=== PATIENT | female | born 1995 | race Caucasian/White ===

== ENCOUNTER 2019-09-22 16:46 | Outpatient (REF) | payer OTHER, SELFPAY ==
--- NOTE | 2019-09-22 16:00 | PAPFT_PTH ---
PATIENT: Christi Anderson LOC: NCN #:[id number] AGE/SX: 23/F ROOM: RE09/22/[address]: Bernadine Arzola : 1995 BED: DIS: 09/22/2019 SPEC #: [id number] RECD: 09/22/19 18:32 STATUS: CORNELIO REQ #: [id number] OVIDIO: 09/22/19 16:[address]: Bernadine Arzola DEPT: [facility] Cytology RECD BY: Minnie Cummings ENTERED: 09/22/19 18:32 SP TYPE: PAPFT OTHR DR: Apple Tracy MD Tissues: 1 - CX/ENDOCX FOR PAP SMEARS Procedures: PAP THIN PREP/UVM Screening Comments: [id number] (CHLAMYDIA/GC)
[2019-09-23 14:14] LABS: Chlamydia Result Negative (Negative)
[2019-09-23 14:33] LABS: GC Result Negative (Negative)
== END 2019-09-22 17:06 ==
LOC: NCHCN 16:46
PROVIDERS: PCP Pediatrics; Visit Provider Family Medicine
DX: Z00.00 Encounter for general adult medical examination without abnormal findings (principal); Z12.4 Encounter for screening for malignant neoplasm of cervix
CPT/HCPCS: 87491; 87591; 88142

== ENCOUNTER 2019-12-08 11:59 | Outpatient (CLI) | payer BC, SELFPAY ==
[2019-12-08 13:08] LABS: HCT 43.3 % (36.0-46.0); HGB 14.4 g/dL (12.0-15.5); Mean Corp. HGB Concentration 33.3 g/dL (32.0-36.0); Mean Corpuscular Hemoglobin 30.1 pg (27.0-33.0); Mean Corpuscular Volume 90.6 fL (80-95); Platelet Count 304 x1000/uL (130-400); RBC 4.78 m/cumm (4.00-5.20); RBC Distribution Width 12.7 % (11.7-14.6); White Blood Cell Count 6.48 k/cumm (4.4-10.8)
[2019-12-08 13:47] LABS: HCG Qual (Serum) Negative
[2019-12-08 14:33] LABS: ALT 28 U/L (14-59); AST 24 U/L (15-37); Alkaline Phosphatase 40 U/L (46-116); Anion Gap 10.7 mmol/L (3-11); BUN 6 mg/dL (7-18); Bilirubin, Total 0.4 mg/dL (0.2-1.0); CO2 26.3 mmol/L (21.0-32.0); CREATININE 0.85 mg/dL (0.55-1.02); Calcium 9.4 mg/dL (8.5-10.1); Chloride 105 mmol/L (98-107); Glucose 83 mg/dL (74-106); Lipase 100 U/L (73-393); Potassium 4.2 mmol/L (3.5-5.1); Sodium 142 mmol/L (136-145); TSH (W/Ref FT4) 1.59 uIU/mL (0.36-3.74); Total Protein 7.5 g/dL (6.4-8.2)
[2019-12-10 14:33] LABS: IgA 314 mg/dL (85-499); Tissue Transglutaminase IgA <1.2 U/mL (<4.0)
== END 2019-12-08 12:19 ==
PROVIDERS: PCP Family Medicine; Visit Provider Family Medicine
DX: R51 Headache (principal); R11.0 Nausea
CPT/HCPCS: 36415; 80053; 82784; 83516; 83690; 85027; 84443; 84703

== ENCOUNTER 2020-04-19 16:33 | Outpatient (REF) | payer BC, SELFPAY ==
[2020-04-20 23:52] LABS: COVID-19 RT-PCR UVMMC Result Negative (Negative)
== END 2020-04-19 16:53 ==
LOC: NCHCN 16:33
PROVIDERS: PCP Family Medicine; Visit Provider Nurse Practitioner Family
DX: J06.9 Acute upper respiratory infection, unspecified (principal)
CPT/HCPCS: U0003

== ENCOUNTER 2020-06-09 02:09 | Outpatient (CLI) | payer BC, SELFPAY ==
--- NOTE | 2020-06-09 | DI.MRI_ITS ---
EXAM: MR BRAIN WO CLINICAL HISTORY: HEADACHES,R51,NAUSEA, FEELING OFF BALANCE TECHNIQUE: Multiplanar multisequence MRI of the brain was performed. COMPARISON: No exams were available for comparison FINDINGS: VENTRICLES AND EXTRA AXIAL SPACES: Normal in size and morphology for the patient's age. MIDLINE SHIFT: None. CEREBRAL PARENCHYMA: No focus of restricted diffusion to suggest acute infarct. No space-occupying le jemma identified. HEMORRHAGE: None. BRAINSTEM/CEREBELLUM: Normal. CALVARIUM: Normal. VISUALIZED PARANASAL SINUSES/MASTOIDS:Clear. ONEIDA OF ZUNIGA: Normal flow void. PITUITARY GLAND: Unremarkable. OTHER FINDINGS: None. IMPRESSION: Unremarkable MRI of the brain. DATA REPOSITORY:
== END 2020-06-09 02:29 ==
PROVIDERS: PCP Family Medicine; Visit Provider Family Medicine
DX: R51 Headache (principal); R11.0 Nausea
CPT/HCPCS: 70551

== ENCOUNTER 2022-11-16 11:24 | Outpatient (REF) | payer BC, SELFPAY ==
--- NOTE | 2022-11-16 10:20 | PAPFT_PTH ---
PATIENT: Christi Anderson LOC: [facility]#:[id number] AGE/SX: 27/F ROOM: RE11/16/[address]: Bernadine Arzola : 1995 BED: DIS: 11/16/2022 SPEC #: [id number] RECD: 11/16/22 18:19 STATUS: CORNELIO REQ #: [id number] OVIDIO: 11/16/22 10:[address]: Bernadine Arzloa DEPT: [facility] [place] Cytology RECD BY: Minnie Cummings Tissues: 1 - CX/ENDOCX FOR PAP SMEARS Procedures: PAP THIN PREP/UVM Screening HPV DNA PROBE Comments: [id number] (CHLAMYDIA/GC)
[2022-11-17 12:49] LABS: Chlamydia Result Negative (Negative); GC Result Negative (Negative)
== END 2022-11-16 11:25 | disposition home or self-care (01) ==
LOC: NCHCN 11:24
PROVIDERS: PCP Family Medicine; Visit Provider Family Medicine
DX: Z11.3 Encounter for screening for infections with a predominantly sexual mode of transmission (principal); Z12.4 Encounter for screening for malignant neoplasm of cervix; Z01.419 Encounter for gynecological examination (general) (routine) without abnormal findings; Z11.51 Encounter for screening for human papillomavirus (HPV)
CPT/HCPCS: 87491; 87591; 88142; 87624

== ENCOUNTER 2022-11-28 17:22 | Outpatient (REF) | payer BC, SELFPAY ==
[2022-11-28 20:01] LABS: ALT 27 U/L (14-59); AST 28 U/L (15-37); Alkaline Phosphatase 55 U/L (46-116); Bilirubin, Direct 0.1 mg/dL (0.0-0.2); Bilirubin, Total 0.4 mg/dL (0.2-1.0); Lipase 47 U/L (16-77)
[2022-11-30 10:29] LABS: HIV-1/2 Ag & Ab Screen Negative (Negative)
[2022-11-30 10:34] LABS: Hepatitis C Ab w Rflx HCV PCR Negative (Negative)
== END 2022-11-28 17:23 | disposition home or self-care (01) ==
LOC: NCHCN 17:22
PROVIDERS: PCP Family Medicine; Visit Provider Family Medicine
DX: Z00.00 Encounter for general adult medical examination without abnormal findings (principal); R11.0 Nausea; Z11.4 Encounter for screening for human immunodeficiency virus [HIV]; Z11.59 Encounter for screening for other viral diseases
CPT/HCPCS: 80076; 83690; 86803; 87389

== ENCOUNTER 2024-10-13 11:32 | Outpatient (CLI) | payer BC, SELFPAY ==
[2024-10-13 11:19] LABS: Abs Immature Grans 0.02 10^3/uL (0.0-0.06); Absolute Basophil Count 0.05 10^3/uL (0.0-0.2); Absolute Eosinophil Count 0.15 10^3/uL (0.0-0.7); Absolute Lymphocyte Count 2.13 10^3/uL (1.2-3.4); Absolute Monocyte Count 0.63 10^3/uL (0.1-0.8); Absolute Neutrophil Count 3.92 10^3/uL (1.2-6.7); Basophils % 0.7 %; Eosinophils % 2.2 %; HCT 41.7 % (36.0-46.0); HGB 14.1 g/dL (11.2-15.7); Immature Grans % 0.3 %; Lymphocytes % 30.9 %; MCH 29.8 pg (27.0-33.0); MCHC 33.8 % (32.0-36.0); MCV 88 fL (80-95); MPV 9.2 fL (8.0-11.0); Monocytes % 9.1 %; Neutrophils % 56.8 %; Platelet Count 337 10^3/uL (130-400); RBC 4.73 10^6/uL (3.93-5.22); RDW-SD 39.2 fL
[2024-10-13 11:43] LABS: ALT 24 U/L (14-59); AST 22 U/L (15-37); Albumin 3.7 g/dL (3.4-5.0); Alkaline Phosphatase 63 U/L (46-116); Anion Gap 10.5 mmol/L (3-11); BUN 6 mg/dL (7-18); Bilirubin, Total 0.24 mg/dL (0.2-1.0); CO2 26.5 mmol/L (21.0-32.0); Chloride 105 mmol/L (98-107); Estimated GFR 77.72 (mL/min/1.73m2); Glucose 81 mg/dL (74-106); Lipase 52 U/L (<78); Potassium 3.9 mmol/L (3.5-5.1); Sodium 142 mmol/L (136-145); Total Protein 8.3 g/dL (6.4-8.2)
[2024-10-13 11:47] LABS: Calcium 9.5 mg/dL (8.5-10.1)
== END 2024-10-13 11:33 | disposition home or self-care (01) ==
LOC: LBO 11:33
PROVIDERS: PCP Family Medicine; Visit Provider Nurse Practitioner Family
DX: R10.11 Right upper quadrant pain (principal)
CPT/HCPCS: 36415; 80053; 83690; 85025

== ENCOUNTER 2024-10-23 07:59 | Inpatient (IN) | payer BC, SELFPAY ==
[2024-10-23] VITALS (9 sets, daily range): BP systolic 111–143; BP diastolic 63–100; PULSE 82–117; RESP 14–20; TEMP 35.8–36.9; O2SAT 96–100
--- NOTE | 2024-10-23 | DI.MRI_ITS ---
Exam(s) MR ABDOMEN WO EXAM: MR ABDOMEN WO CLINICAL HISTORY: CBD stone TECHNIQUE: Multiplanar multisequence MRI of the Abdomen was performed. MRCP sequences also performed. COMPARISON: US US ABDOMEN LIMITED from 10/23/2024 FINDINGS: Liver: Unremarkable. Gallbladder: Multiple stones. No abnormal gallbladder distention or wall thickening. Bile Ducts: The common bile duct is dilated to 10 millimeters. There are 5 stones within the common bile duct, measuring 6 to 9 millimeters in size. There is mild intrahepatic biliary dilatation. Pancreas: Unremarkable. Adrenals: Unremarkable. Kidneys: Unremarkable. Spleen: Unremarkable. Aorta: Unremarkable. Soft Tissues: Unremarkable. Bone: Unremarkable. Lymph Nodes: Unremarkable. Mesentery: No ascites. No focal fluid collection. Bowel: No abnormal dilatation or wall thickening. IMPRESSION: Five stones are noted within the common bile duct. There is dilatation of the common bile duct to 10 millimeters. Additional stones are noted in the gallbladder. No significant wall thickening or abn ormal gallbladder distention. . DATA REPOSITORY:
--- NOTE | 2024-10-23 08:00 | RT.EKG_ITS ---
APPROVED REPORT Exam: Resting ECG Reason for Exam: chest pain Patient Location: E HR:110 bpm ECG Measurements Heart Rate 110 AXIS OR 134 P 87 QRSd 77 QRS 94 QT 332 T -1 QTc 448 Conclusion Sinus tachycardia 110 normal axis no stemi
--- NOTE | 2024-10-23 08:08 | ED.GENADUL_ITS ---
Discharge Plan Disposition Patient Disposition: Admit to [facility] Discharge Details Clinical Impression: Gallstones Admit Date/Time: 10/23/24 10:52 Admit Provider: Maki Hardy Attending Provider: Maki Hardy Primary Care Provider: Bernadine Arzola ED Provider: Lupe Garcia HPI General Date/Time Provider Initiated Documentation: 10/23/24 08:07 . HPI Narrative: Christi is a 28 year old female who presents to the emergency department today for evaluation of stabbing right upper quadrant pain that radiates around to the back accompanied by nausea and vomiting. She reports that she had an episode of pain similar to this that lasted approximately 2 weeks but then gradually went away. Her PCP ordered an ultrasound to be performed next week. The pain returned 2 days ago, is worse than before. She did vomit x 1 today. Denies associated fever/chills, congestion, sore throat, cough, chest pains, difficulty breathing, blood in vomit, change in urine output or diarrhea, rashes. She reports she has an aching pain all across her mid back that is associated with this. Does report darker yellow urine than usual, but no other urinary complaints. Denies history of calf swelling/tenderness, surgery or immobility, long distance travel, cancer or blood clot history. Past medical history is significant for GERD, carpal tunnel, chronic headaches. No significant family history of hyperlipidemia, coronary artery disease, or diabetes. Physical exam remarkable for mild tenderness to palpation to right upper quadrant. Patient is alert and oriented, no acute distress. Abdomen is soft, nondistended, no rigidity or guarding, normoactive bowel sounds. No overlying rashes or ecchymosis. No CVA tenderness. Easy work of breathing, lung sounds clear bilaterally. Normal heart sounds, tachycardia noted.. D/dx includes but is not limited to: Choledocholithiasis, cholecystitis, pancreatitis, GERD, peptic ulcer disease I independently interpreted the following tests: EKG reassuring, sinus tachycardia, rate 110, no changes consistent with acute ischemia. Normal intervals. CBC reassuring. LFTs very elevated with total bili 6. 3 6, AST 429, ALT 692, and alk phos 126. Lipase elevated at 172. Urine shows large bili and moderate blood, greater than 160 mg/dL ketones. hCG negative While in the emergency department, Christi received Zofran for nausea, experienced good relief of symptoms and heart rate decreased to 82; she is resting comfortably. Patient does have cholelithiasis on CT scan. Discussed case with Dr. Hardy, general surgeon. As patient has significantly elevated LFTs, she meets criteria for admission; would benefit from MRCP and ERCP/management. She is agreeable with plan of care Related Data Home Medications ?Medication ?Instructions ?Recorded ?Confirmed medroxyprogesterone 150 mg/mL 150 mg IM [id number] 12/01/22 10/23/24 intramuscular syringe pantoprazole 40 mg tablet,delayed 40 mg PO DAILY 12/01/22 10/23/24 release ondansetron 4 mg disintegrating 4 mg PO Q8H PRN #10 tabs 10/23/24 tablet Previous Rx's ?Medication ?Instructions ?Recorded ondansetron 4 mg disintegrating 4 mg PO Q8H PRN #10 tabs 10/23/24 tablet Allergies Allergy/AdvReac Type Severity Reaction Status Date / Time No Known Allergies Allergy Verified 10/23/24 08:11 Review of Systems Narrative: See HPI Exam Const General: cooperative, healthy appearing, comfortable, no acute distress, well developed and well groomed Nutritional Appearance: average body habitus and well nourished Orientation: alert and oriented x3 HENMT Mouth: oral mucosae normal, oropharynx normal and moist mucous membranes Resp Effort & Inspection: normal respiratory effort and able to speak in complete sentences Auscultation: clear to auscultation bilaterally Cardio Rate: tachycardic Rhythm: regular rhythm GI Inspection: normal to inspection, no abdominal wall ecchymosis, non-distended, no visible herniation and no visible pulsation Palpation: soft, not firm, not rigid and tender in the RUQ Auscultation: normal bowel sounds Medical Decision Making Imaging Data Radiologic Study: Radiologist's impression: Accession No. : [id number] Creator : MACARIO PARKER Dictator : MACARIO PARKER Automotive Sales Professional : Paper Grader : MACARIO PARKER Approver2 : Report Date : 10/23/2024 10:15:37 Exam(s) US ABDOMEN LIMITED EXAM: US ABDOMEN LIMITED CLINICAL HISTORY: RUQ pain radiating to back, n/v TECHNIQUE: Ultrasound abdomen performed using standard protocol. COMPARISON: No exams were available for comparison FINDINGS: LIVER: Normal size. Mildly increasedechogenicity, consistent with mild hepatic steatosis. No focal liver lesions are seen. GALLBLADDER: Several small stones are noted. No evidence of wall thickening. No pericholecystic fluid identified. BARAHONA'S SIGN: Negative. BILIARY SYSTEM: No intrahepatic or extrahepatic biliary ductal dilation. RIGHT KIDNEY: Normal size. No evidence of renal calculi. No evidence of hydro nephrosis. No suspicious renal mass. No cyst identified. PANCREAS: Normal where visualized. ABDOMINAL AORTA AND IVC: Visualized portions normal caliber. ASCITES: None seen. IMPRESSION: Cholelithiasis. No evidence of acute cholecystitis or biliary dilatation. DATA REPOSITORY: Quality:[facility] Health Related Social Needs: Health related social needs housing instability, house d, with risk of homelessness(Z59.811) [facility] All Active Problems (Updated 10/23/24 @ 10:42 by Lupe Ayala) Gallstones (Acute) Abnormal auditory perception of both ears (Acute) Medical History Carpal tunnel syndrome Chronic headaches Chronic nausea Contraceptive management Encounter for screening for malignant neoplasm of cervix GERD (gastroesophageal reflux disease) Obesity Otalgia, bilateral Preventative health care TMJ tenderness, bilateral Social History Smoking/Tobacco Use Status: Never Smoking risk assessment performed?: Yes Alcohol Intake: never Drug use: Never Substance use type: does not use Housing: house Do you feel safe at home: Yes Do you feel safe in your relationship?: Yes
[2024-10-23 08:40] LABS: Abs Immature Grans 0.03 10^3/uL (0.0-0.06); Absolute Basophil Count 0.04 10^3/uL (0.0-0.2); Absolute Eosinophil Count 0.03 10^3/uL (0.0-0.7); Absolute Lymphocyte Count 0.83 10^3/uL (1.2-3.4); Absolute Monocyte Count 0.73 10^3/uL (0.1-0.8); Absolute Neutrophil Count 6.65 10^3/uL (1.2-6.7); Basophils % 0.5 %; Eosinophils % 0.4 %; HCT 44.4 % (36.0-46.0); HGB 15.1 g/dL (11.2-15.7); Immature Grans % 0.4 %; MCH 30.3 pg (27.0-33.0); MCV 89 fL (80-95); MPV 9.1 fL (8.0-11.0); Monocytes % 8.8 %; Neutrophils % 79.9 %; Platelet Count 315 10^3/uL (130-400); RBC 4.99 10^6/uL (3.93-5.22); RDW-SD 39.1 fL; WBC 8.31 10^3/uL (4.4-10.8)
--- NOTE | 2024-10-23 08:45 | DI.US_ITS ---
Exam(s) US ABDOMEN LIMITED EXAM: US ABDOMEN LIMITED CLINICAL HISTORY: RUQ pain radiating to back, n/v TECHNIQUE: Ultrasound abdomen performed using standard protocol. COMPARISON: No exams were available for comparison FINDINGS: LIVER: Normal size. Mildly increasedechogenicity, consistent with mild hepatic steatosis. No focal liver lesions are seen. GALLBLADDER: Several small stones are noted. No evidence of wall thickening. No pericholecystic flui d identified. BARAHONA'S SIGN: Negative. BILIARY SYSTEM: No intrahepatic or extrahepatic biliary ductal dilation. RIGHT KIDNEY: Normal size. No evidence of renal calculi. No evidence of hydronephrosis. No suspicious renal mass. No cyst identified. PANCREAS: Normal where visualized. ABDOMINAL AORTA AND IVC: Visualized portions normal caliber. ASCITES: None seen. IMPRESSION: Cholelithiasis. No evidence of acute cholecystitis or biliary dilatation. DATA REPOSITORY:
[2024-10-23] MEDS: Ondansetron 4 MG/2 ML VIAL IVP (08:49)
[2024-10-23 09:32] LABS: Bilirubin Large (Negative); Blood Moderate (Negative); Clarity Clear (Clear); Glucose Negative (Negative); Ketones >=160 mg/dL (Negative); Leukocyte Esterase Trace (Negative); Nitrite Negative (Negative); Urobilinogen 0.2 mg/dL (Up to 0.2)
[2024-10-23 09:46] LABS: ALT 692 U/L (14-59); AST 429 U/L (15-37); Albumin 3.9 g/dL (3.4-5.0); Alkaline Phosphatase 126 U/L (46-116); Anion Gap 9.8 mmol/L (3-11); BUN 4 mg/dL (7-18); Bilirubin, Total 6.36 mg/dL (0.2-1.0); CO2 28.2 mmol/L (21.0-32.0); CREATININE 0.8 mg/dL (0.55-1.02); Chloride 103 mmol/L (98-107); Estimated GFR 101.59 (mL/min/1.73m2); Glucose 91 mg/dL (74-106); Lipase 172 U/L (<78); Magnesium 2.1 mg/dL (1.8-2.4); Potassium 4.6 mmol/L (3.5-5.1); Sodium 141 mmol/L (136-145); Total Protein 8.3 g/dL (6.4-8.2)
[2024-10-23 10:08] LABS: Epithelial Cells Few HPF (Negative)
[2024-10-23 10:09] LABS: Bacteria Rare HPF (Negative); C & S Indicated? No; Casts 0-2 Fine Granular LPF (Negative); Crystals Negative HPF (Negative); Mucus Negative (Negative); Other Cells Few Renal (Negative)
--- NOTE | 2024-10-23 11:31 | W.PM.HP.N ---
Date of service: 10/23/24 Time of Service: 20:16 Assessment and Plan Assessment and plan (1) Abnormal auditory perception of both ears: Status: Acute (2) Gallstones: Status: Acute Assessment and plan: ASSESSMENT AND PLAN 1. Cholelithiasis. They present with 5 gallstones lodged in their bile duct, causing significant pain and jaundice. The gallstones are located at the junction where the pancreas meets the bile ducts. A comprehensive discussion was held regarding the necessity of gallbladder removal in the future. The procedure for stone removal was explained in detail, including the potential need for a stent placement post-procedure. They were informed about the possibility of experiencing a sore throat, abdominal tenderness, and nausea post-procedure. They were advised to inform the nurse if they experience nausea so that appropriate medication can be administered. They were also advised to take a week off from work post-surgery for rest and recovery. An ERCP procedure is scheduled for tomorrow at [facility] to remove the stones. They will be transported via ambulance to [facility] for the procedure and will be kept overnight for observation. If their condition remains stable and they are able to eat, they will be discharged the following day. A cholecystectomy is planned for a week after the ERCP. The alternatives to surgery, risks, complications, and the possible need to convert to open cholecystectomy were discussed. Also bleeding, infection, pneumonia, blood clots, complications of anesthesia, damage to bowel, bladder, blood vessels, or bile ducts, liver, need for blood transfusions. Also: chronic pain, chronic diarrhea/post-ivan syndrome, reoccurrence of signs and symptoms, port site hernias, adhesions This document was created w/ assistance of [email or web address] leonardo. 30 mins spent in direct pt care and 10 minutes in non face to face time (3) GERD (gastroesophageal reflux disease): (4) Choledocholithiasis with obstruction: Status: Acute (5) Cholelithiasis with choledocholithiasis: Status: Acute (6) Choledocholithiasis with chronic cholecystitis: Status: Acute History of Present Illness Narrative: HISTORY OF PRESENT ILLNESS The patient presents for evaluation of gallstones. They report a significant improvement in their condition since their last visit to the emergency room. They experienced severe back pain, which they describe as feeling like being kicked repeatedly. This morning, they also had nausea and vomiting. A few weeks prior, they had a similar episode of sharp back pain, prompting a doctor's visit. Blood tests were conducted at that time, and an ultrasound was scheduled for the following Sunday. They have no history of childbirth or hormonal control use. They are uncertain about any family history of gallbladder issues. Their cholesterol levels have not been checked. They have no history of surgeries, heart problems, asthma, diabetes, or seizures. They recall undergoing anesthesia as a child due to stomach issues, but no abnormalities were found. They have had their wisdom teeth removed without complications. They are not on any medications. They do not smoke. Review of Systems All systems reviewed & are unremarkable except as noted in HPI and below PFSH All Active Problems Choledocholithiasis with chronic cholecystitis (Acute) Cholelithiasis with choledocholithiasis (Acute) Choledocholithiasis with obstruction (Acute) Gallstones (Acute) Abnormal auditory perception of both ears (Acute) Medical History Encounter for screening for malignant neoplasm of cervix Preventative health care Contraceptive management Carpal tunnel syndrome Chronic headaches GERD (gastroesophageal reflux disease) TMJ tenderness, bilateral Otalgia, bilateral Chronic nausea Obesity Social History Smoking/Tobacco Use Status: Never Smoking risk assessment performed?: Yes Alcohol Intake: never Drug use: Never Substance use type: does not use Housing: house Do you feel safe at home: Yes Do you feel safe in your relationship?: Yes Meds Allergies and Home Medications Allergies Allergy/AdvReac Type Severity Reaction Status Date / Time No Known Allergies Allergy Verified 10/23/24 08:11 Home Medications ?Medication ?Instructions ?Recorded ?Confirmed ?Type medroxyprogesterone 150 mg/mL 150 mg IM [id number] 12/01/22 10/23/24 History intramuscular syringe pantoprazole 40 mg tablet,delayed 40 mg PO DAILY 12/01/22 10/23/24 History release ondansetron 4 mg disintegrating 4 mg PO Q8H PRN #10 tabs 10/23/24 Rx tablet Exam Narrative Exam Narrative: PHYSICAL EXAM GENERAL APPEARANCE: Alert, healthy appearance, oriented, x 3,? in no acute distress HYDRATION: Well hydrated HEAD, EYES, EARS, NECK, THROAT: Head is normocephalic, pupils equal, round, reactive to light and accommodation, ocular movement intact, sclera clear and no jaundice. ?Dentition intact. LUNGS: normal respiration/normal chest excursion. ?Clear to auscultation bilaterally. ?No wheeze. ?HEART: Regular rate and rhythm. no murmurs EXTREMITY: No edema or cyanosis.? no leg pain, redness, swelling.? ABDOMEN: pain is in epigastric region- mild now. ? Normal bowel sounds.? No hernias.? Results Labs 10/24/24 06:35 10/23/24 09:24 Labs: Laboratory Results - last 24 hr 10/23/24 10/23/24 10/23/24 08:33 08:49 09:24 WBC 8.31 RBC 4.99 Hgb 15.1 Hct 44.4 MCV 89 MCH 30.3 MCHC 34.0 RDW 12.0 Plt Count 315 MPV 9.1 Immature Gran % 0.4 Neutrophils % 79.9 Lymphocytes % 10.0 Monocytes % 8.8 Eosinophils % 0.4 Basophils % 0.5 Nucleated RBC % 0.0 Absolute Neutrophils 6.65 Absolute Lymphocytes 0.83 L Absolute Monocytes 0.73 Absolute Eosinophils 0.03 Absolute Basophils 0.04 Sodium Cancelled 141 Potassium Cancelled 4.6 Chloride Cancelled 103 Carbon Dioxide Cancelled 28.2 Anion Gap Cancelled 9.8 BUN Cancelled 4 L Creatinine Cancelled 0.8 Est GFR (CKD-EPI 2020) Cancelled 101.59 Glucose Cancelled 91 Calcium Cancelled 10.0 Magnesium Cancelled 2.1 Total Bilirubin Cancelled 6.36 H AST Cancelled 429 H ALT Cancelled 692 H Alkaline Phosphatase Cancelled 126 H Total Protein Cancelled 8.3 H Albumin Cancelled 3.9 Lipase Cancelled 172 H Urine Color Yellow Urine Clarity Clear Urine pH 6.0 Ur Specific Minto 1.010 Urine Protein Trace Urine Ketones >=160 H Urine Blood Moderate H Urine Nitrite Negative Urine Bilirubin Large H Urine Urobilinogen 0.2 Ur Leukocyte Esterase Trace H Urine RBC 5-10 H Urine WBC 5-10 Ur Epithelial Cells Few Urine Crystals Negative Urine Bacteria Rare Urine Casts 0-2 Fine Granular Urine Mucus Negative Urine Other Few Renal Ur Culture Indicated? No Urine Glucose Negative Last Vital Signs Temp 36.8 C 10/23/24 10:51 Pulse 84 10/23/24 10:51 Resp 20 10/23/24 10:51 BP 111/78 10/23/24 10:51 Pulse Ox 100 10/23/24 10:51 Anemia profile Hgb 13.3 g/dL (11.2-15.7) 10/24/24 Hct 39.6 % (36.0-46.0) 10/24/24 MCV 89 fL (80-95) 10/24/24 RDW 12.3 % (11.7-14.6) 10/24/24 Basic Metabolic Sodium 141 mmol/L (136-145) 10/23/24 Potassium 4.6 mmol/L (3.5-5.1) 10/23/24 Chloride 103 mmol/L (98-107) 10/23/24 Carbon Dioxide 28.2 mmol/L (21.0-32.0) 10/23/24 BUN 4 mg/dL (7-18) L 10/23/24 Creatinine 0.8 mg/dL (0.55-1.02) 10/23/24 Estimated GFR/1.73 m2 >= 60.00 (mL/min/1.73m2) 12/08/19 Glucose 91 mg/dL (74-106) 10/23/24 CBC White Blood Count 5.69 10^3/uL (4.4-10.8) 10/24/24 Red Blood Count 4.45 10^6/uL (3.93-5.22) 10/24/24 Hemoglobin 13.3 g/dL (11.2-15.7) 10/24/24 Hematocrit 39.6 % (36.0-46.0) 10/24/24 Mean Corpuscular Volume 89 fL (80-95) 10/24/24 Mean Corpuscular Hemoglobin 29.9 pg (27.0-33.0) 10/24/24 Mean Corpuscular Hemoglobin Concent 33.6 % (32.0-36.0) 10/24/24 Red Cell Distribution Width 12.3 % (11.7-14.6) 10/24/24 Platelet Count 288 10^3/uL (130-400) 10/24/24 Mean Platelet Volume 9.2 fL (8.0-11.0) 10/24/24 Neutrophils % 57.8 % 10/24/24 Lymphocytes % 26.0 % 10/24/24 Monocytes % 12.5 % 10/24/24 Eosinophils % 2.8 % 10/24/24 Basophils % 0.5 % 10/24/24 Immature Granulocytes % 0.4 % 10/24/24 Comprehensive Metabolic Panel Sodium 141 mmol/L (136-145) 10/23/24 09:24 Potassium 4.6 mmol/L (3.5-5.1) 10/23/24 09:24 Chloride 103 mmol/L (98-107) 10/23/24 09:24 Carbon Dioxide 28.2 mmol/L (21.0-32.0) 10/23/24 09:24 BUN 4 mg/dL (7-18) L 10/23/24 09:24 Creatinine 0.8 mg/dL (0.55-1.02) 10/23/24 09:24 Estimated GFR/1.73 m2 >= 60.00 (mL/min/1.73m2) 12/08/19 12:35 Glucose 91 mg/dL (74-106) 10/23/24 09:24 Calcium 10.0 mg/dL (8.5-10.1) 10/23/24 09:24 Conjugated Bilirubin 3.0 mg/dL (0.0-0.2) H 10/24/24 06:35 Total Bilirubin 4.09 mg/dL (0.2-1.0) H 10/24/24 06:35 ALT 541 U/L (14-59) H 10/24/24 06:35 AST 290 U/L (15-37) H 10/24/24 06:35 Alkaline Phosphatase 117 U/L (46-116) H 10/24/24 06:35 Total Protein 7.3 g/dL (6.4-8.2) 10/24/24 06:35 Albumin 3.2 g/dL (3.4-5.0) L 10/24/24 06:35 Diabetes results Glucose 91 mg/dL (74-106) 10/23/24 BUN 4 mg/dL (7-18) L 10/23/24 Creatinine 0.8 mg/dL (0.55-1.02) 10/23/24 Estimated GFR/1.73 m2 >= 60.00 (mL/min/1.73m2) 12/08/19 Est GFR (CKD-EPI 2020) 101.59 (mL/min/1.73m2) 10/23/24 Sodium 141 mmol/L (136-145) 10/23/24 Potassium 4.6 mmol/L (3.5-5.1) 10/23/24 Chloride 103 mmol/L (98-107) 10/23/24 Carbon Dioxide 28.2 mmol/L (21.0-32.0) 10/23/24 Calcium 10.0 mg/dL (8.5-10.1) 10/23/24 AST 290 U/L (15-37) H 10/24/24 ALT 541 U/L (14-59) H 10/24/24 Total Protein 7.3 g/dL (6.4-8.2) 10/24/24 Albumin 3.2 g/dL (3.4-5.0) L 10/24/24 TSH 1.59 uIU/mL (0.36-3.74) 12/08/19 Lipid profile No Data to Display Time Spent Time spent with Patient: 40-54 minutes Time was spent: preparing to see the patient(eg.review tests), obtaining and/or reviewing separately otained hiistory, ordering medications,tests, procedures, referring, communicating with other health post acute care nurse, indepentently interpreting results, counseling the patient, care coordination and other
--- NOTE | 2024-10-23 11:59 | W.PC.ACHO ---
Registration Status: Primary Language: Preferred Language: ED Information & Data Chief Complaint Abd Prob 10/23/24 08:12 Chief Complaint Abd Prob 10/23/24 08:05 Triage Note R mid back pain radiating 10/23/24 08:05 around to RUQ, nausea and vomited this morning. Seen by PCP who ordered an outpatient ultrasound which is scheduled but this morning pain is now in epigastric area which kept her up all night long and vomiting. Bright yellow urine which is not normal Medical / Surgical History (Last Reviewed 01/11/23 @ 06:06 by Shubham Mccurdy MD) Encounter for screening for malignant neoplasm of cervix Preventative health care Contraceptive management Carpal tunnel syndrome Chronic headaches GERD (gastroesophageal reflux disease) TMJ tenderness, bilateral Otalgia, bilateral Chronic nausea Obesity Most Recent Vital Signs Temperature 36.8 C 10/23/24 10:51 Temperature Source Temporal Artery Scan 10/23/24 10:51 Pulse 95 H 10/23/24 11:56 Pulse Rhythm Regular 10/23/24 11:56 Pulse Strength Normal 10/23/24 11:56 Respiratory Rate 20 10/23/24 11:56 Respiratory Effort Normal 10/23/24 11:56 Respiratory Depth Normal 10/23/24 11:56 Respiratory Pattern Normal 10/23/24 11:56 Blood Pressure 121/77 10/23/24 11:56 Blood Pressure Mean 91 10/23/24 11:56 Blood Pressure Position Supine 10/23/24 11:56 Pulse Oximetry 99 10/23/24 11:56 Oxygen Delivery Method Room Air 10/23/24 11:56 Oxygen Flow Rate 0 10/23/24 11:56 Pain Level 6 10/23/24 11:56 Allergies No Known Allergies Allergy (Verified 10/23/24 08:11) Precautions Isolation Standard precaution 10/23/24 08:12 IV IV Catheter Type [Left Saline Lock Antecubital] IV Catheter Gauge [Left 18 Antecubital] Diet Orders Category Date Time Status Nothing Per Oral [DIET] Nutrition 10/23/24 Breakfast Active Diagnostics 10/23/24 10/23/24 10/23/24 Range/Units 09:24 08:49 08:33 WBC 8.31 (4.4-10.8) 10^3/uL RBC 4.99 (3.93-5.22) 10^6/uL Hgb 15.1 (11.2-15.7) g/dL Hct 44.4 (36.0-46.0) % MCV 89 (80-95) fL MCH 30.3 (27.0-33.0) pg MCHC 34.0 (32.0-36.0) % RDW 12.0 (11.7-14.6) % Plt Count 315 (130-400) 10^3/uL MPV 9.1 (8.0-11.0) fL Immature Gran % 0.4 % Neutrophils % 79.9 % Lymphocytes % 10.0 % Monocytes % 8.8 % Eosinophils % 0.4 % Basophils % 0.5 % Nucleated RBC % 0.0 (0.0-0.3) % Absolute Neutrophils 6.65 (1.2-6.7) 10^3/uL Absolute Lymphocytes 0.83 L (1.2-3.4) 10^3/uL Absolute Monocytes 0.73 (0.1-0.8) 10^3/uL Absolute Eosinophils 0.03 (0.0-0.7) 10^3/uL Absolute Basophils 0.04 (0.0-0.2) 10^3/uL Sodium 141 Cancelled Potassium 4.6 Cancelled Chloride 103 Cancelled Carbon Dioxide 28.2 Cancelled Anion Gap 9.8 Cancelled BUN 4 L Cancelled Creatinine 0.8 Cancelled Est GFR (CKD-EPI 2020) 101.59 Cancelled Glucose 91 Cancelled Calcium 10.0 Cancelled Magnesium 2.1 Cancelled Total Bilirubin 6.36 H Cancelled AST 429 H Cancelled ALT 692 H Cancelled Alkaline Phosphatase 126 H Cancelled Total Protein 8.3 H Cancelled Albumin 3.9 Cancelled Lipase 172 H Cancelled Urine Color Yellow (Yellow) Urine Clarity Clear (Clear) Urine pH 6.0 (5-8) Ur Specific [place] 1.010 (1.005-1.025) Urine Protein Trace (Neg-Trace) mg/dL Urine Ketones >=160 H (Negative) mg/dL Urine Blood Moderate H (Negative) Urine Nitrite Negative (Negative) Urine Bilirubin Large H (Negative) Urine Urobilinogen 0.2 (Up to 0.2) mg/dL Ur Leukocyte Esterase Trace H (Negative) Urine RBC 5-10 H (0-2) HPF Urine WBC 5-10 (0-5) HPF Ur Epithelial Cells Few (Negative) HPF Urine Crystals Negative (Negative) HPF Urine Bacteria Rare (Negative) HPF Urine Casts 0-2 Fine Granular (Negative) LPF Urine Mucus Negative (Negative) Urine Other Few Renal (Negative) Ur Culture Indicated? No Urine Glucose Negative (Negative) mg/dL [id number] Documentation POC Urine Test Start: 10/23/24 08:13 Freq: .Urine Test Status: Active Protocol: Activity Type Activity Date Activity User E-sign Co-sign Detail Recorded Client Recorded Date Recorded By Document 10/23/24 08:54 N.NAYANA [id number] 10/23/24 08:54 N.NAYANA Intake and Output - 24 Hour Total 10/23/24 07:59 thru 10/23/24 08:05 Weight 89.811 kg Falls Risk Assessment History of Falls No History 10/23/24 08:50 Contributing Factors No Factors 10/23/24 08:50 Ambulatory Aids Independent 10/23/24 08:50 Tubes/Lines None 10/23/24 08:50 Gait Evaluation No gait disturbance 10/23/24 08:50 Cognition No cognitive impairment 10/23/24 08:50 Fall Total Score 0 10/23/24 08:50 Level of Risk Standard/Low Risk 10/23/24 08:50 Problems (Last Reviewed 01/11/23 @ 06:06 by Shubham Mccurdy MD) Gallstones (Acute) v v v v v v v v v Sending and/or Receiving Nurses: Please use comment section below to note any information pertinent to the patient hand-off not included above. Information / Comments: Report received from: Called and received report from JJ Ibanez from the ED at 1155.
--- OUTSIDE RECORDS SUMMARY | 2024-10-23 12:05 | XMS_ITS | Encounter Summary ---
Author Organization [facility] Address [address] [place] [address] Care Team Providers Care Manager Activities Name Role Phone Unknown, Provider Primary Care Provider Unava ilable Encounter Details Date Type Department Care Team (Late st Contact Info) Description 01/14/2015 Results Only [facility] Laboratory Services - [facility] ([facility]) [address], [place] [id number] Bernadine Short MD [address] [phone] Social History Tobacco Use Types Packs/Day Years Used Date Smoking Tobacco: Never Assessed Comments Unknown Sex and Gender Information Value Date Recorded Sex Assigned at Not on file Legal Sex Female 9:03 EDT Gender Identity Not on file Sexual Orientation Not on file documented as of this encounter Plan of Treatment Not on file documented as of this encounter Procedures Procedure Name Priority Date/Time Associated Diagnosis Comments PAP TEST- RESULT ONLY Routine 01/14/2015 0:00 EDT documented in this encounter Results * PAP TEST- RESULT ONLY (01/14/2015 0:00 EDT) Pathology Report: CYTOPATHOLOGY REPORT Reports generated via electronic interface contain original data; however they are lacking the format of the original report. Caution should be taken when reading/interpret ing unformatted reports. Name: ? CHRISTI ANDERSON ? Accession #: ? [id number] : ? 1995 (Age: 19) ??F ?Collect Date: ? 01/14/2015 Location: ? [facility] ? Receive Date: ? 01/15/2015 Provider: ?BERNADINE SHORT MD Copy to: ? Specimen/Source: ?Pap Test, Cervix/Endocervix , ThinPrep Imaging System with manual evaluation Last Menstrual Period: ? 12/31/14 Hormonal/Contrace ptive Status: ? Depo-Provera ? SPECIMEN ADEQUACY ? Unsatisfactory for Evaluation, - insufficient numbers of squamous epithelial cells (less than 10% of expected cellularity) - sample preparation compromised by excessive blood GENERAL CATEGORIZATION ? Specimen processed and examined, but unsatisfactory for evaluation of epithelial abnormality. ??Recommend repeat Pap test in 2-4 months as stated in ASCCP's 2012 Updated Consensus Guidelines. ? Document reviewed and electronically signed by: ? DAHIANA Walton(ASCP) ? Report Date: ??01/21/2015 13:45 End of Report [facility] 01/14/2015 01/15/2015 us Bernadine Short MD PATHOLOGY ORDERABLES Final Resul t [facility] [address] [place] [address] documented in this encounter Visit Diagnoses Not on filedocumented in this encounter Care Teams Manager Activities Relationship Specialty Start Date End Date Unknown, Provider, PCP - General 01/15/15 documented as of this encounter
--- OUTSIDE RECORDS SUMMARY | 2024-10-23 12:05 | XMS_ITS | Clinical Summary ---
Author Organization [facility] Address [address] [place] [address] Care Team Providers Care Bag Press Operator Name Role Phone Unknown, Provider MD Primary Care Provider Unava ilable Social History Tobacco Use Types Packs/Day Years Used Date Smoking Tobacco: Never Assessed Comments Unknown Sex and Gender Information Value Date Recorded Sex Assigned at Not on file Legal Sex Female 9:03 EDT Gender Identity Not on file Sexual Orientation Not on file Plan of Treatment Health Maintenance Due Date Last Done Comments Hepatitis B Vaccine (1 of 3 - 19+ 3-dose series) 11/14 COVID-19 Vaccine ( season) 2024 Hepatitis C Screen Completed 11/28/2022 Procedures Procedure Name Priority Date/Time Associated Diagnosis Comments HEPATITIS C AB W REFLEX TO HCV RNA BY PCR Routine 11/28/2022 8:20 EST from Last 3 Months or Most Recently Relevant to Health Maintenance Results * HEPATITIS C AB W REFLEX TO HCV RNA BY PCR (11/28/2022 8:20 EST) Hep C Antibody Negative Negative 11/30/2022 10:30 EST [facility] Blood VENOUS BLOOD / Unknown 11/28/2022 8:20 EST 11/29/2022 17:13 EST us Provider Outr Resulting Lab CHEMISTRY & BLOOD GA S ORDERABLES Final Result [facility] [address] [place] [address] from Last 3 Months or Most Recently Relevant to Health Maintenance Care Teams Bag Press Operator Relationship Specialty Start Date End Date Unknown, Provider, PCP - General 01/15/15
--- OUTSIDE RECORDS SUMMARY | 2024-10-23 12:05 | XMS_ITS | Encounter Summary ---
Author Organization [facility] Address [address] [place] [address] Care Team Providers Care Roof Painter Name Role Phone Unknown, Provider Primary Care Provider Unava ilable Encounter Details Date Type Department Care Team (Latest Contact Info) Description 11/16/2022 Lab Requisition [facility] Pathology & Laboratory Medicine - [facility] [address] [place] [address] Bernadine Arzola MD [address] [phone] Encounter for gynecological examination (general) (routine) without abnormal findings; Encounter for screening for malignant neoplasm of cervix Social History Tobacco Use Types Packs/Day Years [...] Name Priority Date/Time Associated Diagnosis Comments PAP TEST Today 11/16/2022 10:20 EST Encounter for gynecological examination (general) (routine) without abnormal findings Encounter for screening for malignant neoplasm of cervix CHLAMYDIA/N. GONORRHOEAE AMPLIFIED NUCLEIC ACID, THINPREP Today 11/16/2022 10:20 EST HPV DNA DETECTION WITH GENOTYPING, PCR Today 11/16/2022 10:20 EST Encounter for gynecological examination (general) (routine) without abnormal findings Encounter for screening for malignant neoplasm of cervix documented in this encounter Results * HUMAN PAPILLOMAVIRUS (HPV) DETECTION-HIGH RISK TYPES (11/16/2022 10:20 EST) HPV other High Risk types, PCR Negative Negative 11/27/2022 15:25 [facility] Comment:No E6 or E7 mRNA is detected from HPV types 16,18,31,33,35,39,45,51,52,56,58,59,66, and 68 by elephant tamer mediated amplification. Papanicolaou smear specimen (specimen) CERVIX UTERI STRUCTURE / Unknown 11/16/2022 10:20 EST 11/24/2022 14:23 EST us Bernadine Arzola MD MICROBIOLOGY - GENERAL ORDERABLE S Final Result [facility] [address] [place] [address] * PAP TEST (11/16/2022 10:20 EST) Specimens A. Cervix and/or Endocervix , ThinPrep Imaging System with Manual Evaluation 11/27/2022 15:25 [facility] Specimen Adequacy Satisfactory for Evaluation - transformation zone component present 11/27/2022 15:25 [facility] General Categorization Negative for intraepithelial lesion or malignancy 11/27/2022 15:25 [facility] Descriptive Diagnosis Reactive cellular changes associated with inflammation present (includes repair). Shift in dori present suggestive of bacterial vaginosis. 11/27/2022 15:25 [facility] Attestation By the signature below, the attending physician certifies that they have personally conducted a gross and/or microscopic examination of the described specimens and rendered or confirmed the above diagnosis. 11/27/2022 15:25 [facility] at 1525 Clinical History See below 11/27/19 15:25 [facility] HPV The result for the Human Papillomavirus (HPV) Detection-High Risk Types is Negative. No E6 or E7 mRNA is detected from HPV types 16,18,31,33,35,39 ,45,51,52,56,58,5 9,66, and 68 by elephant tamer mediated amplification.Nadira ting was performed on specimen [id number] and was resulted on 11/27/2022 1525 EST by AGUSTO, LAB INSTRUMENT RESULTS IN 11/27/2022 15:25 EST [facility] Performing Lab [facility] 11/27/2022 15:25 EST [facility] Scanned Images 11/27/2022 15:25 EST [facility] Papanicolaou smear specimen (specimen) CERVIX UTERI STRUCTURE / Unknown 11/16/2022 10:20 EST 11/17/2022 13:39 EST Bernadine Arzola MD PATHOLOGY ORDERABLES Final Resul t Performing Organization Address City/[facility]/ZIP Co de Phone Number [facility] [address] [place] [address] * CHLAMYDIA/N. GONORRHOEAE AMPLIFIED RNA, THINPREP (11/16/2022 10:20 EST) Neisseria gonorrhoeae Result Negative Negative 11/17/2022 12:44 EST [facility] Chlamydia trachomatis Result Negative Negative 11/17/2022 12:44 EST [facility] Papanicolaou smear specimen (specimen) CERVIX UTERI STRUCTURE / Unknown 11/16/2022 10:20 EST 11/17/2022 7:30 EST Bernadine Arzola MD MICROBIOLOGY - GENERAL ORDERABLE S Final Result Performing Organization Address City/[facility]/ZIP Co de Phone Number [facility] [address] [place] [address] documented in this encounter Visit Diagnoses Diagnosis Encounter for gynecological examination (general) (routine) without abnormal findings Encounter for screening for malignant neoplasm of cervix Screening for malignant neoplasm of the cervix documented in this encounter Care Teams Roof Painter Relationship Specialty Start Date End Date Unknown, Provider, PCP - General 01/15/15 documented as of this encounter
--- OUTSIDE RECORDS SUMMARY | 2024-10-23 12:05 | XMS_ITS | Referral Summary ---
Author Organization [facility] Address [address] [place] [address] Care Team Providers Care Airline Transport Pilot Name Role Phone Unknown, Provider MD Primary Care Provider Unava ilable Social History Tobacco Use Types Packs/Day Years Used Date Smoking Tobacco: Never Assessed Comments Unknown Sex and Gender Information Value Date Recorded Sex Assigned at Not on file Legal Sex Female 9:03 EDT Gender Identity Not on file Sexual Orientation Not on file Plan of Treatment Not on file Procedures Procedure Name Priority Date/Time Associated Diagnosis Comments HEPATITIS C AB W REFLEX TO HCV RNA BY PCR Routine 11/28/2022 8:20 EST from Last 3 Months or Most Recently Relevant to Health Maintenance Results * HEPATITIS C AB W REFLEX TO HCV RNA BY PCR (11/28/2022 8:20 EST) Hep C Antibody Negative Negative 11/30/2022 10:30 EST [facility] Blood VENOUS BLOOD / Unknown 11/28/2022 8:20 EST 11/29/2022 17:13 EST us Provider Outr Resulting Lab CHEMISTRY & BLOOD GA S ORDERABLES Final Result [facility] [address] [place] [address] from Last 3 Months or Most Recently Relevant to Health Maintenance Care Teams Airline Transport Pilot Relationship Specialty Start Date End Date Unknown, Provider, PCP - General 01/15/15
--- OUTSIDE RECORDS SUMMARY | 2024-10-23 12:05 | XMS_ITS | Encounter Summary ---
Author Organization [facility] Address [address] [place] [address] Care Team Providers Care Miller First Name Role Phone Unknown, Provider Primary Care Provider Unava ilable Encounter Details Date Type Department Care Team (Late st Contact Info) Description 04/20/2020 Lab Requisition [facility] Pathology & [place] [address] Outr Resulting Lab, Provider Social History Tobacco Use Types Packs/Day Years [...] Procedure Name Priority Date/Time Associated Diagnosis Comments ZZCOVID-19 TEST [facility] PCR Today 04/19/2020 14:55 EDT COVID-19 TESTING Routine 04/19/2020 14:5 5 EDT documented in this encounter Results * COVID-19 TEST [facility] PCR (04/19/2020 14:55 EDT) Swab ENTIRE NASOPHARYNX / Unknown 04/19/2020 14:55 EDT 04/20/2020 15:41 EDT us Provider Outr Resulting Lab MICROBIOLOGY - GENER AL ORDERABLES Final Result [facility] [address] [place] [address] * COVID-19 TESTING (04/19/2020 14:55 EDT) COVID-19 rt-PCR Result Negative Negative 04/20/2020 23:[address] [facility] Comment: This test has not been FDA cleared or approved. This test has been authorized by FDA under an EUA for use by authorized laboratories. This test has been authorized only for detection of nucleic acid from 2019-nCoV, not for any other viruses or pathogens. This test is only authorized for the duration of the declaration that circumstances exist justifying the authorization of emergency use of in vitro diagnostic tests for detection and/or diagnosis of 2019-nCoV under section 564(b)(1) of Act, 21 U.S.C ?? 360bbb-3(b) (1), unless the authorization is terminated or revoked sooner. Negative results do not preclude 2019-nCoV infection and should not be used as the sole basis for treatment or other patient management decisions. Negative results must be combined with clinical observations, patient history, and epidemiological information. Performed on the InstaEDUher Fusion instrument Performing Lab [place] [facility] 04/20/2020 23:[address] [facility] Swab 04/19/2020 14:5 5 EDT 04/20/2020 15:41 EDT us Provider Outr Resulting Lab MICROBIOLOGY - GENER AL ORDERABLES Final Result [facility] [address] [place] [address] documented in this encounter Visit Diagnoses Not on filedocumented in this encounter Care Teams Miller First Relationship Specialty Start Date End Date Unknown, Provider, PCP - General 01/15/15 documented as of this encounter
--- OUTSIDE RECORDS SUMMARY | 2024-10-23 12:05 | XMS_ITS | Encounter Summary ---
Author Organization [facility] Address [address] [place] [address] Care Team Providers Care Microwave Oven Assembler Name Role Phone Unknown, Provider Primary Care Provider Unava ilable Encounter Details Date Type Department Care Team (Late st Contact Info) Description 11/28/2022 Lab Requisition [facility] Pathology & Laboratory Medicine - [address] [address] Outr Resulting Lab, Provider Social History Tobacco [...] RNA BY PCR Routine 11/28/2022 8:20 EST documented in this encounter Results * HEPATITIS C AB W REFLEX TO HCV RNA BY PCR (11/28/2022 8:20 EST) Hep C Antibody Negative Negative 11/30/2022 10:30 EST [facility] Blood VENOUS BLOOD / Unknown 11/28/2022 8:20 EST 11/29/2022 17:13 EST us Provider Outr Resulting Lab CHEMISTRY & BLOOD GA S ORDERABLES Final Result [facility] [address] [place] [address] documented in this encounter Visit Diagnoses Not on filedocumented in this encounter Care Teams Microwave Oven Assembler Relationship Specialty Start Date End Date Unknown, Provider, PCP - General 01/15/15 documented as of this encounter
--- OUTSIDE RECORDS SUMMARY | 2024-10-23 12:05 | XMS_ITS | Encounter Summary ---
Author Organization [facility] Address [address] [place] [address] Care Team Providers Care Literary Agent Name Role Phone Unknown, Provider MD Primary Care Provider Unava ilable Encounter Details Date Type Department Care Team (Latest Contact Info) Description 09/22/2019 Lab Requisition [facility] Pathology & Laboratory Medicine - [address] [address] Bernadine Arzola MD [address] [phone] Encounter for general adult medical examination without abnormal findings; Encounter for screening for malignant neoplasm of cervix; Encounter for screening for human papillomavirus (HPV) Social History Tobacco Use Types Packs/Day Years [...] Date/Time Associated Diagnosis Comments PAP TEST Today 09/22/2019 16:00 EST Encounter for general adult medical examination without abnormal findings Encounter for screening for malignant neoplasm of cervix Encounter for screening for human papillomavirus (HPV) CHLAMYDIA/N. GONORRHOEAE AMPLIFIED NUCLEIC ACID, THINPREP Today 09/22/2019 16:00 EST documented in this encounter Results * PAP TEST (09/22/2019 16:00 EST) Specimens A. Cervix and/or Endocervix, , ThinPrep Imaging System with Manual Evaluation 09/29/2019 16:53 EST [facility] Specimen Adequacy Satisfactory for Evaluation - transformation zone component present 09/29/2019 16:53 [facility] General Categorization Negative for intraepithelial lesion or malignancy 09/29/2019 16:53 [facility] Attestation . 09/29/2019 16:53 [facility] at 1653 Clinical History NONE 09/29/20 19 16:53 [facility] Scanned Images 09/29/2019 16:53 [facility] Papanicolaou smear specimen (specimen) CERVIX UTERI STRUCTURE / Unknown 09/22/2019 16:00 EST 09/23/2019 11:07 EST us Bernadine Arzola MD PATHOLOGY ORDERABLES Final Resul t Performing Organization Address City/[facility] Co de Phone Number [facility] [address] [place] [address] * CHLAMYDIA/N. GONORRHOEAE AMPLIFIED RNA, THINPREP (09/22/2019 16:00 EST) Neisseria gonorrhoeae Result Negative Negative 09/23/2019 14:10 [facility] Chlamydia trachomatis Result Negative Negative 09/23/2019 14:10 [facility] Papanicolaou smear specimen (specimen) CERVIX UTERI STRUCTURE / Unknown 09/22/2019 16:00 EST 09/23/2019 8:35 EST us Bernadine Arzola MD MICROBIOLOGY - GENERAL ORDERABLE S Final Result Performing Organization Address City/[facility]/ZIP Co de Phone Number [facility] [address] [place] [address] documented in this encounter Visit Diagnoses Diagnosis Encounter for general adult medical examination without abnormal findings Unspecified general medical examination Encounter for screening for malignant neoplasm of cervix Screening for malignant neoplasm of the cervix Encounter for screening for human papillomavirus (HPV) Special screening examination for human papillomavirus (HPV) documented in this encounter Care Teams Literary Agent Relationship Specialty Start Date End Date Unknown, Provider, PCP - General 01/15/15 documented as of this encounter
--- OUTSIDE RECORDS SUMMARY | 2024-10-23 12:05 | XMS_ITS | Encounter Summary ---
Author Organization [facility] Address [address] [place] [address] Care Team Providers Care Suture Polisher Name Role Phone Unknown, Provider Primary Care Provider Unava ilable Encounter Details Date Type Department Care Team (Late st Contact Info) Description 11/28/2022 Lab Requisition [facility] Pathology & Laboratory Medicine - [address] [address] Outr Resulting Lab, Provider Social History Tobacco [...] Procedure Name Priority Date/Time Associated Diagnosis Comments HIV 1/2 ANTIGEN AND ANTIBODY, 4TH GENERATION Routine 11/28/2022 8:20 EST documented in this encounter Results * HIV 1/2 ANTIGEN AND ANTIBODY, 4TH GENERATION (11/28/2022 8:20 EST) HIV 1 and 2 Antibody/p24 Antigen, 4th Generation Negative Negative 11/30/2022 10:24 EST [facility] Comment:If acute HIV-1 infec tion is suspected in a high risk patient, submit plasma specimen for HIV-1 RNA quantitation test. Blood VENOUS BLOOD / Unknown 11/28/2022 8:20 EST 11/29/2022 17:13 EST Narrative [facility] - 11/30/2022 10:24 EST Fourth Generation assay performed on the Siemens Centaur XPT. us Provider Outr Resulting Lab IMMUNOLOGY AND SEROL OGY ORDERABLES Final Result [facility] [address] [place] [address] documented in this encounter Visit Diagnoses Not on filedocumented in this encounter Care Teams Suture Polisher Relationship Specialty Start Date End Date Unknown, Provider, PCP - General 01/15/15 documented as of this encounter
--- OUTSIDE RECORDS SUMMARY | 2024-10-23 12:05 | XMS_ITS | Encounter Summary ---
Author Organization [facility] Address [address] [place] [id number] Care Team Providers Care Fireworks Display Specialist Name Role Phone Unknown, Provider Primary Care Provider Unava ilable Encounter Details Date Type Department Care Team (Late st Contact Info) Description 12/08/[address] [facility] Pathology & [place] [address] Unknown, Provider, Social History Tobacco Use Types Packs/Day Years [...] Procedure Name Priority Date/Time Associated Diagnosis Comments CELIAC DISEASE PANEL Routine 12/08/2019 12:35 EST documented in this encounter Results * CELIAC DISEASE PANEL (12/08/2019 12:35 EST) Tissue Transglutaminase Antibody IGA <1.2 <4.0 U/mL 12/10/2019 14:08 EST [facility] Comment: A negative result may be due to IgA deficiency and does not rule out celiac disease. ? Negative: ??<4.0 U/mL ? Weak Positive: ??4.0 - 10.0 U/mL ? Positive: ??>10.0 U/mL Results were obtained with the [employer]om[employer] QUANTA Lite R h-tTG IgA JAS assay on the [employer] DSX. IgA 314 85 - 499 mg/dL 12/10/2019 14:08 EST [facility] Celiac Disease Interpretation Negative Serology. Celiac disease unlikely. Approximately 10% of patients with celiac disease are seronegative. Patients who are already adhering to a gluten-free diet may also be seronegative. If celiac disease is highly clinically suspected, referral to gastroenterology for additional evaluation is recommended. 12/10/2019 14:08 EST [facility] Blood VENOUS BLOOD / Unknown 12/08/2019 12:35 EST 12/08/2019 21:15 EST us Provider Unknown IMMUNOLOGY AND SEROLOGY MARK ORTEGA Final Result [facility] [address] [place] [address] documented in this encounter Visit Diagnoses Not on filedocumented in this encounter Care Teams Fireworks Display Specialist Relationship Specialty Start Date End Date Unknown, Provider, PCP - General 01/15/15 documented as of this encounter
[2024-10-23] MEDS: Acetaminophen 500 MG TAB 1000 MG PO ×3 (12:38→23:43)
[2024-10-23] MEDS: Normal Saline 1,000 ML 75 ML IV (12:39)
[2024-10-24] MEDS: Normal Saline 1,000 ML 75 ML IV (02:03)
[2024-10-24] MEDS: Acetaminophen 500 MG TAB 1000 MG PO ×3 (06:02→23:58)
[2024-10-24] MEDS: Ondansetron 4 MG/2 ML VIAL IVP ×2 (06:02→17:24)
[2024-10-24 06:54] LABS: Abs Immature Grans 0.02 10^3/uL (0.0-0.06); Absolute Basophil Count 0.03 10^3/uL (0.0-0.2); Absolute Eosinophil Count 0.16 10^3/uL (0.0-0.7); Absolute Lymphocyte Count 1.48 10^3/uL (1.2-3.4); Absolute Monocyte Count 0.71 10^3/uL (0.1-0.8); Absolute Neutrophil Count 3.29 10^3/uL (1.2-6.7); Basophils % 0.5 %; Eosinophils % 2.8 %; HCT 39.6 % (36.0-46.0); HGB 13.3 g/dL (11.2-15.7); Immature Grans % 0.4 %; MCH 29.9 pg (27.0-33.0); MCHC 33.6 % (32.0-36.0); MCV 89 fL (80-95); MPV 9.2 fL (8.0-11.0); Monocytes % 12.5 %; Neutrophils % 57.8 %; Platelet Count 288 10^3/uL (130-400); RBC 4.45 10^6/uL (3.93-5.22); RDW 12.3 % (11.7-14.6); RDW-SD 40.3 fL; WBC 5.69 10^3/uL (4.4-10.8)
[2024-10-24 07:19] LABS: ALT 541 U/L (14-59); AST 290 U/L (15-37); Albumin 3.2 g/dL (3.4-5.0); Alkaline Phosphatase 117 U/L (46-116); Bilirubin, Total 4.09 mg/dL (0.2-1.0); Lipase 89 U/L (<78); Total Protein 7.3 g/dL (6.4-8.2)
[2024-10-24 07:40] VITALS: BP 122/69; PULSE 95; RESP 16; TEMP 36.5; O2SAT 99
--- NOTE | 2024-10-24 08:23 | NUR.NOTE ---
Nursing Note: Nurse to nurse report called to [facility] and given to JJ Shearer.
[2024-10-24] MEDS: HYDROmorphone 2 MG/ML SYR 1 MG IVP (09:18)
[2024-10-24] MEDS: Normal Saline Flush 10 ML SYR IVP ×3 (09:19→20:35)
[2024-10-24] MEDS: Normal Saline 10 ML VIAL IJ (09:19)
[2024-10-24] MEDS: Pantoprazole 40 MG VIAL IVP (09:19)
--- NOTE | 2024-10-24 15:55 | INITIAL_ITS ---
Date of service: 10/24/24 Time of Service: 15:56 Care Management Initial Assmt Initial Assessment Reason for Hospitalization: Gallstones- requiring ERCP Functional Status/Living Situation Patient Presentation: Christi presented to the ED yesterday with c/o stabbing right upper quadrant pain that radiated around to the back accompanied by nausea and vomiting. She reports that she had an episode of pain similar to this that lasted approximately 2 weeks but then gradually went away. She was scheduled to have U/S next week, but the pain returned worse than before, so she came to the ED. was unable to meet with Christi today. She was transported to [facility] [place] [place] earlier today, for a down and back ERCP, and has not yet returned. Per nursing, Christi is independent at baseline and will likely not require any home services. 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 Town of Residence: [place] Resides with: Other (roommate) Significant Other/Family: Local (Christi's parents live nearby) Natural Supports: family, friends Employment Status: Employed Instrumental Activities of Daily Living (ADLs): Independent Medications Medication Management: No Issues/Barriers identified Advance Directives Advance Directives: Do you have an Advance Directive: Y 10/23/24 11:44 AD On File at [facility]: Y 10/23/24 11:44 Date Asked 10/23/24 10/23/24 08:18 AD Date Reviewed 10/23/24 10/23/24 11:44 COLST On File at [facility] COLST Date Scanned Comment: [facility] is Christi's mom, Sara Anderson Code Status Resuscitation Status Full Code Portal Pt does not currently have a portal and education provided: Yes Insurance Coverage/Financial Issues Insurance: BC/BS Care Team Visit Care Team Role Provider Type Bernadine Arzola MD Primary Care Provider [facility] STAFF PHYSICIAN Lupe Ayala Emergency Provider NURSE PRACTITIONER Maki Hardy, DO Admit Provider OSTEOPATHIC DOCTOR Attending Provider Discharge Potential Discharge Needs: PCP F/U Appt, Surgical F/U Appt and Other (cholecystectomy is planned for a week after ERCP) Anticipated Barriers to Discharge: None Identified Patient/Family Education Needs: Review discharge instructions, discuss Ask Me Three Transportation: Private vehicle (with family or friend) Plan: Anticipate that Christi will be discharged home with no new services. She will have her cholecystectomy as planned. She will f/u with the surgeon and her PCP and continue per her prescribed plan of care. She will transport home in a private vehicle. CM will continue to follow. PFSH All Active Problems Choledocholithiasis with chronic cholecystitis (Acute) Cholelithiasis with choledocholithiasis (Acute) Choledocholithiasis with obstruction (Acute) Gallstones (Acute) Abnormal auditory perception of both ears (Acute) Medical History Encounter for screening for malignant neoplasm of cervix Preventative health care Contraceptive management Carpal tunnel syndrome Chronic headaches GERD (gastroesophageal reflux disease) TMJ tenderness, bilateral Otalgia, bilateral Chronic nausea Obesity Social History Smoking/Tobacco Use Status: Never Smoking risk assessment performed?: Yes Alcohol Intake: never Drug use: Never Substance use type: does not use Housing: house Do you feel safe at home: Yes Do you feel safe in your relationship?: Yes Readmission Within the Past 30 Days Yes or No: No SDOH(Care Management) Screening Will the Patient Participate in the Screening?: Yes Do you worry about having a steady place to live?: no Problems where you live: no known problems In the past 12 months, have you had to go without electric, gas, oil or water in your home?: no Have you or anyone in your house had to go without enough food to eat?: no Has lack of transportation kept you from medical appointments or from doing things needed for daily living?: no Has anyone in your support network made you feel unsafe for any reason?: no
[2024-10-24 16:53] VITALS: BP 116/78; PULSE 75; RESP 18; TEMP 36; O2SAT 100
[2024-10-24 23:59] VITALS: BP 111/62; PULSE 85; RESP 16; TEMP 36.8; O2SAT 98
[2024-10-25] MEDS: Acetaminophen 500 MG TAB 1000 MG PO (06:30)
[2024-10-25 06:44] LABS: HCT 38.2 % (36.0-46.0); MCH 29.9 pg (27.0-33.0); MCV 88 fL (80-95); MPV 9.3 fL (8.0-11.0); Platelet Count 277 10^3/uL (130-400); RBC 4.35 10^6/uL (3.93-5.22); RDW 12.2 % (11.7-14.6); RDW-SD 39.3 fL; WBC 5.87 10^3/uL (4.4-10.8)
[2024-10-25 07:03] LABS: ALT 427 U/L (14-59); AST 204 U/L (15-37); Alkaline Phosphatase 107 U/L (46-116); Bilirubin, Total 1.66 mg/dL (0.2-1.0); Lipase 82 U/L (<78)
[2024-10-25 08:06] VITALS: BP 135/71; PULSE 83; RESP 16; TEMP 37; O2SAT 97
[2024-10-25] MEDS: Pantoprazole 40 MG VIAL IVP (08:42)
[2024-10-25] MEDS: Normal Saline Flush 10 ML SYR IVP ×2 (08:42→08:43)
--- NOTE | 2024-10-25 09:13 | PGE_ITS ---
Date of Service Date of service: 10/25/24 Time of Service: 09:13 Assessment and Plan Assessment and plan (1) Choledocholithiasis with chronic cholecystitis: Status: Acute Assessment and plan: Her LFTs are certainly improving with the insertion of the stent, and it is reassuring that she is able to tolerate some diet. We talked about the role of cholecystectomy in the treatment of gallstone pancreatitis and choledocholithiasis. My preference is for patients to be pain-free, and have a normal lipase prior to proceeding with cholecystectomy. At this point, she still has a little bit of discomfort, and I think holding off on cholecystectomy for today is very reasonable. She would prefer to return for short interval outpatient cholecystectomy, which I also think is a safe plan. I will discharge her home today on a low-fat diet, will reach out early this week to schedule her for cholecystectomy. Subjective Subjective Interval history since last seen: Sindy is feeling much better. She does have a little bit of ongoing midepigastric pain, but is certainly improved to her admission. She underwent ERCP at [facility] yesterday. Lithotripsy was performed, and a stent was placed. She will need to repeat the ERCP in 1 month for another attempt at stone hannah arance. Exam GI Other: Abdomen is soft, and only mildly tender in the mid epigastrium with deep pa lpation. Objective Last Vital Signs Temp 98.6 F 10/25/24 08:06 Pulse 83 10/25/24 08:06 Resp 16 10/25/24 08:06 BP 135/71 10/25/24 08:06 Pulse Ox 97 10/25/24 08:06 Laboratory Results - last 24 hr 10/25/24 06:20 WBC 5.87 RBC 4.35 Hgb 13.0 Hct 38.2 MCV 88 MCH 29.9 MCHC 34.0 RDW 12.2 Plt Count 277 MPV 9.3 Total Bilirubin 1.66 H Conjugated Bilirubin 1.0 H AST 204 H ALT 427 H Alkaline Phosphatase 107 Total Protein 7.0 Albumin 3.0 L Lipase 82 H Time Spent with Patient Time Spent with Patient: 25-34 minutes Time was spent: preparing to see the patient(eg.review tests), indepentently interpreting results, counseling the patient and care coordination
--- NOTE | 2024-10-25 09:16 | DSE_ITS ---
Date of service: 10/25/24 Time of Service: 09:16 DS: Diagnosis Discharge Diagnosis (1) Choledocholithiasis with chronic cholecystitis: Status: Acute Asessment and Plan: Status post ERCP with stenting. Discharge home today on low-fat diet with outpatient cholecystectomy Discharge Plan Disposition Patient Disposition: Home Condition: Improving Discharge Details Reason For Visit: Acute cholew/CBD stone Admit Date/Time: 10/23/24 10:52 Admit Provider: Maki Hardy Attending Provider: Maki Hardy Primary Care Provider: Bernadine Arzola [facility] Course Hospital Course: Christi is a 28-year-old woman who comes to the emergency department with acute onset of abdominal pain. LFTs were concerning for choledocholithiasis and gallstone pancreatitis. She was admitted and resuscitated, and transferred down to [facility] for an ERCP. Lithotripsy was performed, and a stent was placed. LFTs were improved, and she was able to tolerate a diet. She was discharged home with plan for outpatient Home Meds and New Rx's Prescriptions: New ondansetron 4 mg tablet,disintegrating 4 mg PO Q8H PRNQty: 10 0RF No Action pantoprazole 40 mg tablet,delayed release (DR/EC) 40 mg PO DAILY medroxyprogesterone 150 mg/mL syringe 150 mg IM [id number] Discharge Instructions Instructions: Gallbladder Diet Additional Instructions: Christi, it was very nice meeting you in the hospital, and am glad that you are recovering from your gallstone pancreatitis. As I mentioned before your discharge, please be careful with your diet over the next few days. Limiting dietary fats will help reduce stimulation of the gallbladder, and hopefully prevent any discomfort associated with your gallstones. As I mentioned, I will have the office give you a call on Sunday to make arrangements for an outpatient cholecystectomy Activity:: Activity as Tolerated Equipment/Supplies:: No Equipment Needed Diet:: Low-fat DS: Summary Time Spent with Patient providing and/or coordinating discharge services: Less than 30 minutes Status at Discharge Functional status at discharge: independent ambulation Overall status at discharge: patient is progressing back to baseline Mental Status: mental status grossly normal Speech and Movement: speech and movement normal Mood: congruent mood Affect: normal affect Quality:SDOH Health Related Social Needs: Health related social needs housing instability, house d, with risk of homelessness(Z59.811) Exam GI Other: Abdomen is soft, and only mildly tender in the deep mid epigastrium Psych Mental Status: mental status grossly normal Speech and Movement: speech and movement normal Mood: congruent mood Affect: normal affect DS: Data Vitals/I&O Vitals and I&O: Vital Signs Temperature 98.6 F 10/25/24 08:06 Temperature Source Temporal Artery Scan 10/25/24 08:06 Pulse 83 10/25/24 08:06 Pulse Rhythm Regular 10/23/24 12:08 Pulse Strength Normal 10/23/24 11:56 Respiratory Rate 16 10/25/24 08:06 Respiratory Effort Normal, Non-Labored 10/23/24 12:08 Respiratory Depth Normal 10/23/24 12:08 Respiratory Pattern Normal 10/23/24 12:08 Blood Pressure 135/71 10/25/24 08:06 Blood Pressure Mean 91 10/23/24 11:56 Blood Pressure Position Supine 10/23/24 11:56 Pulse Oximetry 97 10/25/24 08:06 Oxygen Delivery Method Room Air 10/25/24 08:06 Oxygen Flow Rate 0 10/25/24 08:06 Pain Level 5 10/25/24 08:06 Comment pt denies need for pain meds at this time 10/25/24 08:06 Intake & Output 10/24/24 10/24/24 10/25/24 11:59 23:59 11:59 Intake Total 1571.25 / 2271.25 700 / 2271.25 500 / 500 Output Total 800 / 2300 1500 / 2300 700 / 700 Balance 771.25 / -28.75 -800 / -28.75 -200 / -200 Intake: IV 1571.25 / 1571.25 0 / 1571.25 Oral 700 / 700 500 / 500 Output: Urine 800 / 2300 1500 / 2300 700 / 700 Other: Urine Color Dark Danielle Light Danielle Urine Appearance Clear Urine Odor None Data Completed and Pending Labs on day of discharge: Labs from last 24 hours 10/25/24 06:20 WBC 5.87 RBC 4.35 Hgb 13.0 Hct 38.2 MCV 88 MCH 29.9 MCHC 34.0 RDW 12.2 Plt Count 277 MPV 9.3 Total Bilirubin 1.66 H Conjugated Bilirubin 1.0 H AST 204 H ALT 427 H Alkaline Phosphatase 107 Total Protein 7.0 Albumin 3.0 L Lipase 82 H PFSH All Active Problems Choledocholithiasis with chronic cholecystitis (Acute) Cholelithiasis with choledocholithiasis (Acute) Choledocholithiasis with obstruction (Acute) Gallstones (Acute) Abnormal auditory perception of both ears (Acute) Medical History Encounter for screening for malignant neoplasm of cervix Preventative health care Contraceptive management Carpal tunnel syndrome Chronic headaches GERD (gastroesophageal reflux disease) TMJ tenderness, bilateral Otalgia, bilateral Chronic nausea Obesity Social History Smoking/Tobacco Use Status: Never Smoking risk assessment performed?: Yes Alcohol Intake: never Drug use: Never Substance use type: does not use Housing: house Do you feel safe at home: Yes Do you feel safe in your relationship?: Yes Time Spent with Patient Time Spent with Patient: <45 minutes Time was spent: preparing to see the patient(eg.review tests), indepentently interpreting results, counseling the patient and care coordination
--- NOTE | 2024-10-25 09:36 | CMDISCH_ITS ---
Date of service: 10/25/24 Time of Service: 09:36 LACE Index Scoring Tool Questions: Length of Stay (in days): 2 Was the patient admitted via the E.D.?: Yes E.D. Visits: 1 Answers: Total Score: 6 Risk of Readmission: Low Risk Care Management Discharge Plan Reason for Hospitalization: choledocholithiasis Discharge Plan: Christi will be discharged home today with no new services. She will follow up with her surgeon and will have an elective cholecystectomy as an outpatient. She will transport with family. Patient/Family Education Needs: review of discharge instructions, limitations, follow up plan and discuss Ask Me Three. SDOH Health Related Social Needs: Health related social needs housing instability, house d, with risk of homelessness(Z59.811) Health related social needs: housing instability, housed, with risk of homelessness(Z59.811)
== END 2024-10-25 10:21 | disposition home or self-care (01) | DRG 444 ==
LOC: ER 11:44 → MS 12:03
PROVIDERS: Surgery; Admitting Provider Surgery; Emergency Provider Nurse Practitioner Family; PCP Family Medicine; Visit Provider Surgery
DX: K85.10 Biliary acute pancreatitis without necrosis or infection; K80.65 Calculus of gallbladder and bile duct with chronic cholecystitis with obstruction; Z59.811 Housing instability, housed, with risk of homelessness; H93.293 Other abnormal auditory perceptions, bilateral; K21.9 Gastro-esophageal reflux disease without esophagitis; G89.29 Other chronic pain; R51.9 Headache, unspecified; E66.9 Obesity, unspecified; R11.0 Nausea; Z68.36 Body mass index [BMI] 36.0-36.9, adult
CPT/HCPCS: 36415; 80053; 80076; 81025; 83690; 85027; 93005; 96374; 99223; 99239; 99285; 74181; 76705; 81003; 81015; 83735; 85025; 93010; J1171; J2405; J2470

== ENCOUNTER 2024-11-05 10:51 | Day surgery (SDC) | payer BC, SELFPAY ==
--- NOTE | 2024-11-04 18:24 | W.PM.DSUDISC ---
Date of service: 11/05/24 Discharge Plan Disposition Patient Disposition: Home Condition: Good Discharge Details Reason For Visit: cholecystectomy Attending Provider: Faustino Swan Primary Care Provider: Bernadine Arzola Home Meds and New Rx's Prescriptions: New tramadol 50 mg tablet 50 mg PO Q8H PRNQty: 12 0RF Rx Instructions: Take 1 tablet by mouth up to every 8 hours if needed for more intense pain Continued pantoprazole 40 mg tablet,delayed release (DR/EC) 40 mg PO DAILY medroxyprogesterone 150 mg/mL syringe 150 mg IM [id number] ondansetron 4 mg tablet,disintegrating 4 mg PO Q8H PRNQty: 10 0RF Discharge Instructions Instructions: Cholecystectomy (DC) Additional Instructions: Christi, it is very nice seeing you today, and I hope you make a quick recovery from this operation. Things went very smoothly. Your gallbladder was quite contracted, and it appears to be filled up with stones. We were able to get it out with the cameras as we discussed before hand. Over the next few days, he will probably have a fair amount of pain at the surgical sites. Using Tylenol and ibuprofen will be helpful. Ice packs over the area of pain will also help reduce swelling and improve the discomfort. I also provided a prescription for some stronger pain medication if it is the case that you need it. You will probably get some bruising around the incision sites, that is extremely common and nothing at all to be worried about. As I mentioned before surgery, please feel free to eat and drink what ever you like. If you experience any diarrhea or discomfort, then I would recommend switching over to a low-fat diet and gently easing back into things over the coming weeks. You should be up and walking around each day, and getting a little bit of very basic exercise taking care not to stress your abdominal wall too much. Keep the lifting less than a gallon of milk, and avoid strenuous abdominal exercises like sit ups or crunches. I have gone ahead and made a follow-up appointment in our office on November 18 at 9:30 AM, but if you need anything in the meantime, please do not hesitate to call. 1. Resume all of your regular medications. 2. Alternate heating pads and ice packs over the incsions to help with pain. 3. Alternate over the counter tylenol and ibuprofen every 6 hours for the first 2 days, then use as needed. Us the prescription for tramadol if needed for more severe pain. 4. Leave bandages in place for 24 hours, then remove. 5. Shower with warm soapy water. Pat dry. Use a bandaid if needed to protect your clothing. 6. No soaking or tub baths until I see you in the office. 7. No heavy lifting until I see you in the office. 8. Call the office (or go directly to the emergency room after hours) if you notice any of the following: Develop chills (warm to touch), or if you have a thermometer and your temperature is above 101 Difficulty breathing or difficultly swallowing Persistent vomiting Any bleeding ? exceeding one tablespoon 9. Call your physician if the site where your intravenous was started becomes red, swollen, painful, and warm to touch. Referrals: Faustino Swan MD [ [facility] STAFF PHYSICIAN] - (November 18 at 9:30 AM) Activity:: no heavy lifting Remove Dressings/Wound Care:: 24 hours Shower/Bathe:: 24 hours Diet:: As Tolerated Discharge Orders Discharge Orders: Discharge Order (Routine); Ordered 11/04/24 Ordered By: Faustino Swan DS: Diagnosis Discharge Diagnosis (1) Cholelithiasis with choledocholithiasis: Status: Acute Asessment and Plan: Status post laparoscopic cholecystectomy; outpatient postoperative follow-up
--- NOTE | 2024-11-04 18:26 | ROE_ITS ---
Operative Note Operative Note PRE-OP DIAGNOSIS: Cholelithiasis and choledocholithiasis. POST-OP DIAGNOSIS: same PROCEDURE: laparoscopic cholecystectomy SURGEON: Faustino Swan CUSTOMER RESPONSE REPRESENTATIVE: Liane Ness ANESTHESIA TYPE: General LMA/ETT Refer to Anesthesia Record ESTIMATED BLOOD LOSS: 25 PATHOLOGY: other (Gallbladder) COMPLICATIONS: None Patient was transported to: PACU Patient's condition: stable Indications: Sindy is a 28-year-old woman with cholelithiasis. She was recently hospitalized for choledocholithiasis which required ERCP with stenting. She is here for cholecystectomy to reduce the likelihood of recurrent choledocholithiasis and risk of pancreatitis. Findings: Contracted gallbladder with chronic inflammation around the cystic neck and Procedure Description: After satisfactory induction of general anesthesia, I prepped and draped the abdomen in usual fashion. Next, I began with a periumbilical incision. I dissected down to the fascia and elevated it with Sarah clamps. Using a 5 mm optical viewing port, I entered the peritoneal cavity under direct vision. I established pneumoperitoneum. I placed another 5 mm port out on the right hemiabdomen. Next, I moved the camera over to the port site, and upsized the umbilical port to a 12 port. The camera was then returned to the umbilical position, and the patient was placed in a little bit of reverse Trendelenburg with the left side down. Another 5 mm port was placed in the mid epigastrium, and finally 1 in the right mid abdomen. I then grasped the gallbladder fundus and elevated cephalad. With the assistance of indocyanine green I began by dissecting the gallbladder infundibulum. There was a fair amount of chronic inflammation that extended down onto the cystic neck and the cystic duct. Similarly, there were thick adhesions that I suspect are secondary to the choledocholithiasis and stented common bile duct. In an effort to minimize any trauma to this area, I continued dissecting the gallbladder well away from the triangle of Calot. Once I developed the plane along the posterior gallbladder fossa, I turned my attention to a dome down dissection. With the assistance of electrocautery, the gallbladder was dissected completely free of the gallbladder fossa with gentle cephalad retraction of the liver. I brought this dissection all the way down along the gallbladder fossa until I met the previous dissection field completely freeing up the gallbladder. I then upsized the 5 mm port in the mid epigastrium to a 12 port, and the gallbladder was divided from the inflamed cystic neck with a single fire of the KENJI stapler. The gallbladder was placed in a specimen bag, and removed by way of the midepigastric port site. The port was replaced, and the surgical field was irrigated clean. It was hemostatic. There was just a small amount of bleeding from the staple line that was reinforced with surgical clips. Again, great care was taken with placement of these clips to ensure no injury to the underlying extrahepatic biliary system. The midepigastric port was then removed, and the site was closed with a 0 Vicryl suture with the assistance of the Vahid Shetty wound closure device. The 12 mm port in the umbilical site was also removed, and this site was closed in the exact same fashion. Finally, the 2 remaining 5 mm ports were removed. Skin and subcutaneous tissues were irrigated, and the skin was reapproximated with subcuticular stitches. Bandages were applied, and Christi was allowed awaken from the anesthetic, extubated, transferred to the recovery unit. Date of Procedure: 11/05/24
[2024-11-05] VITALS (31 sets, daily range): BP systolic 96–128; BP diastolic 30–86; PULSE 67–90; RESP 14–25; TEMP 36–36.4; O2SAT 73–100; BMI 36.3
[2024-11-05] MEDS: Celecoxib 200 MG CAP PO (11:10)
[2024-11-05] MEDS: Gabapentin 300 MG CAP 600 MG PO (11:10)
--- NOTE | 2024-11-05 11:22 | W.ANESPRE ---
General Info Date of Service Date Performed: 11/05/24 Height: 5 ft 2 in Weight: 90 kg Body Mass Index (BMI): 36.3 Surgical Procedure: Operation Date: 11/05/24 13:10 Proposed Procedure Side Surgeon p Cholecystectomy Laparoscopic Faustino Swan MD Meds Allergies and Home Medications Allergies Allergy/AdvReac Type Severity Reaction Status Date / Time No Known Allergies Allergy Verified 11/05/24 11:07 Home Medication ?Medication ?Instructions ?Recorded medroxyprogesterone 150 mg/mL 150 mg IM [id number] 12/01/22 intramuscular syringe pantoprazole 40 mg tablet,delayed 40 mg PO DAILY 12/01/22 release ondansetron 4 mg disintegrating 4 mg PO Q8H PRN #10 tabs 10/23/24 tablet Current Visit Medications: Current Medications Generic Name Dose Route Start Last Admin Trade Name Freq PRN Reason Stop Dose Admin Acetaminophen 1,000 mg 11/05/24 06:00 Acetaminophen 500 Mg Tab PO 11/05/24 23:59 PREOP JEN Celecoxib 200 mg 11/05/24 06:00 Celecoxib 200 Mg Cap PO 11/05/24 23:59 PREOP JEN Gabapentin 600 mg 11/05/24 06:00 Gabapentin 300 Mg Cap PO 11/05/24 23:59 PREOP JEN Hydromorphone HCl 0.2 mg 11/04/24 18:28 Hydromorphone 1 Mg/Ml Syr IVP 12/04/24 18:27 Q1H PRN PRN Cefazolin Sodium/Dextrose 2 gm in 50 mls @ 100 mls/hr 11/05/24 06:00 Ancef Duplex IVPB 11/05/24 23:59 PREOP JEN Ringer's Solution 1,000 mls @ 80 mls/hr 11/05/24 09:00 IV 12/05/24 08:59 INFUSION [facility] IV Miscellaneous Supplies 1 each 11/05/24 06:00 Iv Access IV 11/05/24 23:59 DIRECTED JEN Indocyanine Green 5 mg 11/05/24 06:00 Indocyanine Green 25 Mg Vial IVP 11/05/24 16:00 DIRECTED JEN Sodium Chloride 0 ml 11/05/24 06:00 Normal Saline Flush 10 Ml Syr IV 11/05/24 23:59 PRN PRN Sodium Chloride 0 ml 11/05/24 06:00 Normal Saline 10 Ml Vial IJ 11/05/24 23:59 DIRECTED PRN Sterile Water 0 ml 11/05/24 06:00 Water,Injection,Sterile 10 Ml Vial IJ 11/05/24 23:59 DIRECTED PRN Tramadol HCl 50 mg 11/04/24 18:28 Tramadol 50 Mg Tab PO 12/04/24 18:27 Q6H PRN PRN Pain PFSH Active Problems Active Problems: Problem Status Onset Code Choledocholithiasis with chronic cholecystitis Acute K80.44 Cholelithiasis with choledocholithiasis Acute K80.70 Gallstones Acute K80.20 Abnormal auditory perception of both ears Acute H93.293 Medical History Medical History Encounter for screening for malignant neoplasm of cervix Preventative health care Contraceptive management Carpal tunnel syndrome Chronic headaches GERD (gastroesophageal reflux disease) TMJ tenderness, bilateral Otalgia, bilateral Chronic nausea Obesity Surgical History Surgical History Hx of wisdom tooth extraction S/P ERCP Tobacco Smoking/Tobacco Use Status: Former Tobacco Use Alcohol Alcohol Intake: never Substance Use Substance use: Never Substance use type: does not use Vital Signs and Lab Results Vital Signs Most Recent Vital Signs in EMR: Most Recent Vital Signs Temp Pulse Resp BP Pulse Ox 36.3 C L 90 16 112/86 97 11/05/24 10:53 11/05/24 10:53 11/05/24 10:53 11/05/24 10:53 11/05/24 10:53 Point of Care Results Point of Care Results: POC- Test(urine) Negative 11/05/24 11:33 Lab Results Blood Type / Crossmatch: No Data to Display Complete Blood Count: White Blood Count 5.87 10^3/uL (4.4-10.8) 10/25/24 06:20 Red Blood Count 4.35 10^6/uL (3.93-5.22) 10/25/24 06:20 Hemoglobin 13.0 g/dL (11.2-15.7) 10/25/24 06:20 Hematocrit 38.2 % (36.0-46.0) 10/25/24 06:20 Platelet Count 277 10^3/uL (130-400) 10/25/24 06:20 Complete Metabolic Panel: Sodium 141 mmol/L (136-145) 10/23/24 09:24 Potassium 4.6 mmol/L (3.5-5.1) 10/23/24 09:24 Chloride 103 mmol/L (98-107) 10/23/24 09:24 Carbon Dioxide 28.2 mmol/L (21.0-32.0) 10/23/24 09:24 BUN 4 mg/dL (7-18) L 10/23/24 09:24 Creatinine 0.8 mg/dL (0.55-1.02) 10/23/24 09:24 Est GFR (CKD-EPI 2020) 101.59 (mL/min/1.73m2) 10/23/24 09:24 Magnesium 2.1 mg/dL (1.8-2.4) 10/23/24 09:24 Calcium 10.0 mg/dL (8.5-10.1) 10/23/24 09:24 Albumin 3.0 g/dL (3.4-5.0) L 10/25/24 06:20 Glucose 91 mg/dL (74-106) 10/23/24 09:24 Liver Function Panel: Alanine Aminotransferase (ALT/SGPT) 427 U/L (14-59) H 10/25/24 06:20 Aspartate Amino Transf (AST/SGOT) 204 U/L (15-37) H 10/25/24 06:20 Coagulation Panel: No Data to Display Cardiac Panel: No Data to Display Arterial Blood Gas: No Data to Display Venous Blood Gas: No Data to Display Pancreas Panel: Lipase 82 U/L (<78) H 10/25/24 06:20 Thyroid Panel: No Data to Display Infectious Disease: No Data to Display Blood Cultures: No Data to Display Toxicology Panel: No Data to Display Panel: No Data to Display Imaging and Studies Imaging and Studies Study information below may be from another EMR and interpreted by another provider. Please see original notes in EMR for more complete details. EKG Summary: 10/23/24 Conclusion Sinus tachycardia 110 normal axis no stemi Anesthesia Assessment and Plan Anesthesia History Personal History: No History of Anesthesia Complications Family History: No Family History of Anesthesia Complications Exercise Tolerance Exercise Tolerance: Metabolic Equivalents>4 Pertinent Negatives Pertinent Negatives: No Major Cardiovascular Symptoms or Complaints, No Major Pulmonary Symptoms or Complaints and No History of CVA/TIA Cardiac & Pulmonary Exam Cardiac Exam: Normal S1/S2 Heart Sounds Pulmonary Exam: Clear Bilateral Breath Sounds Implantable Cardiac Device Does patient have a Pacemaker or an ICD?: No Airway Exam Known Difficult Airway: No Mallampati Class: 3 Mouth Opening: Normal (> 3cm) Thyromental Distance: Less than 3 cm Neck Range of Motion: Full ROM Neck Circumference: Normal Teeth Condition: Normal Dentition ASA Classification ASA Score: ASA 2 Emergency Case?: No NPO Status NPO Status: NPO Clears >2 hours, Solids >8 hours Status Status: Negative HCG Anesthesia Plan Resuscitation Status: Full Code Anesthesia Technique: General Anesthesia Airway Planned: Endotracheal Tube Monitors Used: Standard Monitors Preoperative Comments:: Occ GERD symptoms, RSI
[2024-11-05] MEDS: Lactated Ringers 1,000 ML 80 ML IV (12:00)
[2024-11-05] MEDS: Indocyanine green 25 MG VIAL 5 MG IVP (12:07)
[2024-11-05] MEDS: ceFAZolin 2 GM/50 ML BAG IVPB (13:56)
[2024-11-05] MEDS: Bupivacaine 0.25% Pres-Free W/EPI 30 ML VIAL (14:19)
--- NOTE | 2024-11-05 15:05 | GB_PTH ---
PATIENT: Christi Anderson LOC: [facility] U#:[id number] AGE/SX: 28/F ROOM: RE11/05/[address]: Faustino Swan MD : 1995 BED: DIS: 11/05/2024 SPEC #: [id number] RECD: 11/05/24 17:31 STATUS: CORNELIO RE #: [id number] OVIDIO: 11/05/24 15:[address]: Faustino Swan DEPT: Surgical Specimen RECD BY: Minnie Cummings ENTERED: 11/05/24 17:32 SP TYPE: GB OTHR DR: Bernadine Arzola Tissues: 1 - GALLBLADDER Procedures: GROSS AND MICRO LEVEL 3 Comments: [id number]
--- NOTE | 2024-11-05 16:14 | W.ANESPOSTOP ---
Postoperative Evaluation Date, Time and Location Date Performed: 11/05/24 Time Performed: 16:14 Patient Location: PACU Vital Signs Most Recent Imported Vital Signs: Most Recent Vital Signs Temp Pulse Resp BP Pulse Ox 36.4 C L 67 21 114/50 L 100 11/05/24 16:05 11/05/24 16:06 11/05/24 16:06 11/05/24 16:06 11/05/24 16:06 Pain Score Most Recent Pain Score: Most Recent Pain Score Pain Level 3 11/05/24 10:53 Assessment Mental Status: Arousable with meaningful communication Airway and Respiratory Function: Patent airway with normal (patient baseline) respiratory exam Cardiovascular Function: Hemodynamically Stable Hydration Status: Adequately Hydrated Nausea & Vomiting: No Nausea or Vomiting Pain: Pain is tolerable per patient Peripheral Nerve Block: Patient did not receive a nerve block
[2024-11-05] MEDS: ACETAMINOPHEN 1,000 MG/100 ML BAG 400 MG IVPB (16:23)
[2024-11-05] MEDS: traMADol 50 MG TAB PO (17:15)
== END 2024-11-05 18:04 | disposition home or self-care (01) ==
LOC: SUR 10:52
PROVIDERS: PCP Family Medicine; Visit Provider Surgery
PROC: 0FT44ZZ Resection of Gallbladder, Percutaneous Endoscopic Approach (ICD-10-PCS; CPT 47562; principal; 2024-11-05 13:00)
DX: K80.10 Calculus of gallbladder with chronic cholecystitis without obstruction (principal); K21.9 Gastro-esophageal reflux disease without esophagitis
CPT/HCPCS: 47562; 81025; 88304; J0131; J0690; J1100; J1885; J2250; J2405; J2704

== ENCOUNTER 2024-12-31 07:15 | Emergency (ER) | payer BC, SELFPAY ==
[2024-12-31 07:22] VITALS: BP 151/85; PULSE 117; RESP 16; TEMP 36.4; O2SAT 99
--- NOTE | 2024-12-31 08:13 | W.ED.GENAD ---
Discharge Plan Disposition Patient Disposition: Home Condition: Good Discharge Details Clinical Impression: Abdominal pain, RUQ Primary Care Provider: Bernadine Arzola ED Provider: Marvin Cheek Home Meds and New Rx's Prescriptions: No Action pantoprazole 40 mg tablet,delayed release (DR/EC) 40 mg PO DAILY medroxyprogesterone 150 mg/mL syringe 150 mg IM [id number] Discharge Instructions Instructions: Abdominal pain Additional Instructions: At this time your workup has returned reassuring. We did reach out to the executive administrative asst and they are reassured by your workup and imaging findings. They recommend follow-up on an outpatient basis. Please contact them for a follow-up in the next few weeks. Please take Tylenol and Motrin as needed for pain. Please take the Zofran as needed for nausea. If you notice any worsening of your symptoms, or any new symptoms such as vomiting, diarrhea, fever, chills, shortness of breath, chest pain, numbness, weakness, or fainting , please return immediately to the emergency department for reevaluation. Please follow up with your primary care provider as soon as possible for reassessment and reevaluation. As always, it was a pleasure participating in your medical care today. Referrals: Bernadine Arzola MD [Primary Care Provider] - HPI General Date/Time Provider Initiated Documentation: 12/31/24 07:48. HPI Narrative: This is a pleasant 29-year-old female with a past medical history of choledocholithiasis, cholecystitis, who had a biliary stent placed in September, and then subsequent cholecystectomy performed at [facility] in October. She just had the stent removed yesterday, at [facility] and the procedure went well. However last evening she began to get nauseous and developed right upper quadrant abdominal pain. This morning the pain was notably worse, she had an episode of vomiting, and came to the ER for further assessment. She denies fever or chills. She denies urinary complaints. She denies diarrhea. No other complaints at this time. No other modifying factors. Related Data Home Medications ?Medication ?Instructions ?Recorded ?Confirmed medroxyprogesterone 150 mg/mL 150 mg IM [id number] 12/01/22 12/31/24 intramuscular syringe pantoprazole 40 mg tablet,delayed 40 mg PO DAILY 12/01/22 12/31/24 release Allergies Allergy/AdvReac Type Severity Reaction Status Date / Time No Known Allergies Allergy Verified 12/31/24 07:21 General Stated Complaint: Abd Prob JUAN CARLOS: 3 Exam Narrative Exam Narrative: 1.Const: Well-nourished, Well-developed, appearing stated age 2.Eyes: PERRL, no conjunctival injection, and symmetrical lids. 3.ENT: Atraumatic external nose and ears. Moist MM. Neck: Symmetric, trachea midline, No thyromegaly. 4.CVS: +S1/S2, Peripheral pulses 2+ and equal in all extremities. Brisk capillary refill in all extremities. 5.RESP: Unlabored respiratory effort. Clear to auscultation bilaterally. No wheezes rales or rhonchi 6.GI: Soft, nondistended, no guarding or rebound. Moderate right upper quadrant tenderness, mild right-sided CVA tenderness. Mild generalized abdominal tenderness. 7.MSK: Normocephalic/Atraumatic, Extremities w/o deformity or ttp No cyanosis or clubbing, Normal movement of all extremities 8.Skin: Warm, Dry. No rashes or lesions. 9.Neuro: test automation architect II-XII grossly intact. Sensation grossly intact, no focal neurologic deficits. 10.Psych: (AAO) x3. Appropriate mood and affect Course Vital Signs Vital signs: Vital Signs Temperature 36.4 C 12/31/24 07:22 Pulse 117 H 12/31/24 07:22 Respiratory Rate 16 12/31/24 07:22 Blood Pressure 151/85 H 12/31/24 07:22 Pulse Oximetry 99 12/31/24 07:22 Temperature 36.4 C 12/31/24 07:22 Temperature Source Oral 12/31/24 07:22 Pulse 117 H 12/31/24 07:22 Respiratory Rate 16 12/31/24 07:22 Blood Pressure 151/85 H 12/31/24 07:22 Pulse Oximetry 99 12/31/24 07:22 Oxygen Delivery Method Room Air 12/31/24 07:22 Oxygen Flow Rate 0 12/31/24 07:22 Pain Level 5 12/31/24 07:22 Medical Decision Making This is a pleasant 29-year-old female with a past medical history of choledocholithiasis, cholecystitis, who had a biliary stent placed in September, and then subsequent cholecystectomy performed at [facility] in October. She just had the stent removed yesterday, at [facility] and the procedure went well. However last evening she began to get nauseous and developed right upper quadrant abdominal pain. This morning the pain was notably worse, she had an episode of vomiting, and came to the ER for further assessment. She denies fever or chills. She denies urinary complaints. She denies diarrhea. No other complaints at this time. No other modifying factors. Exam demonstrates mild right upper quadrant tenderness, no guarding or rebound no. Vital signs stable aside for mild tachycardia at 178. Concern for ductal clogging and potential obstruction. Concern for potential bleed or other pathology post procedurally. Will get CT imaging, gently rehydrate, treat her pain, monitor closely and reassess. 11:[address] shows evidence of mild enhancement of the common bile duct wall, and mild dilatation but no other significant abnormalities. Slightly prominent bowel loops, but no other concerning components. On reassessment the patient has complete resolution of her pain. She is feeling much better and feels comfortable going home. She is tolerated p.o., and has no more vomiting. I did contact [facility] and discussed the case with Dr. Schuler and Dr. Buck. They reviewed the labs and personally reviewed the imaging. They feel that this inflammation is normal post procedurally, does not require antibiotics, and they would like to follow-up with her on a nonemergent outpatient basis. With the resolution of the patient's pain, lack of evidence of significantly high transaminases, lipase, or bilirubin, no fever, and completely resolved pain, I do feel that discharge at this time is reasonable as there is no current clinical evidence of an acute surgical emergency. Patient will be stable for discharge. Discussed red flags which to return. I have extensively reviewed the treatment plan and discharge instructions with the patient. I have addressed all patient concerns at this time. The patient was made aware of what symptoms to monitor for that would warrant a return to the emergency department. Discussed the plan with the patient, they demonstrate verbal understanding and agreement with our assessment and plan at this time. The documentation in this chart was dictated using [employer] dictation software. Please excuse any dictation errors. FINDINGS: VISUALIZED LUNG BASES: No nodules nor pleural effusions evident. ABDOMEN: There is no ascites. LIVER: There is mild dilatation of intrahepatic ducts and the CBD is slightly dilated and exhibits somewhat shaggy appearance. There is no radiopaque stent visible within the CBD (requisition states that new stent was inserted 1 day ago). GALLBLADDER/BILIARY: Gallbladder surgically absent. There is no abnormal mass nor fluid collection in the gallbladder fossa. PANCREAS: No evidence of pancreatitis nor dilatation of the pancreatic duct. No pancreatic lesions evident. SPLEEN: zz Splenic and portal veins are patent. ADRENALS: There are no significant adrenal masses. KIDNEYS:No cysts evident. No solid renal masses. No calculi nor hydronephrosis.. ABDOMINAL AORTA: Abdominal aorta is not enlarged. LYMPH NODES:There is no retroperitoneal nor paraaortic adenopathy. ABDOMINAL WALL: No evidence of significant anterior abdominal wall nor inguinal hernia. GI: There are few fluid-filled centrally located small bowel loops which measure up to 2.4 cm. Transition to normal small bowel appearance is in the midline. The stomach is not distended. Slight haziness around the duodenum is noted. PELVIS: GI: No evidence of appendicitis.No evidence of sigmoid diverticulitis. LYMPH NODES: There is no intrapelvic nor inguinal adenopathy. REPRODUCTIVE: Uterus and adnexal regions appear age-appropriate. There is no free fluid in the pelvis. URINARY BLADDER: No calculi nor obvious masses evident OSSEOUS: No fractures and no significant osseous lesions. IMPRESSION: 1. Compared to the MRI scan of 10/23/2024 there has been interval cholecystectomy. 2. There is no abnormal fluid collection in the gallbladder fossa but there is dilatation of the biliary tree. CBD diameter is 9-10 mm. There are no obvious radiopaque calculi seen in the CBD but there is enhancement of the CBD wall. This may indicate cholangitis. The cystic duct remnant also appears dilated. There is some mild streaking around these biliary structures as well as around the duodenum which may be from recent instrumentation. There is no radiopaque stent visible in the CBD nor within the duodenum. 3. There is slightly prominent central bowel loops with transition point in the midline. These bowel loops, however, measure only up to 2.4 cm. Stomach is not distended. No intraluminal stent is seen in the bowel loops. 4. No evidence of pancreatitis nor dilatation of the pancreatic duct. Report called by myself to ER physician 12/31/2024 at 9:40 a.m. Quality:SDOH Health Related Social Needs: No Data to Display PFSH All Active Problems (Updated 12/31/24 @ 11:04 by Marvin Cheek DO) Abdominal pain, RUQ (Acute) Choledocholithiasis with chronic cholecystitis (Acute) Cholelithiasis with choledocholithiasis (Acute) Gallstones (Acute) Abnormal auditory perception of both ears (Acute) Medical History (Updated 12/31/24 @ 11:04 by Marvin Cheek DO) Encounter for screening for malignant neoplasm of cervix Preventative health care Contraceptive management Carpal tunnel syndrome Chronic headaches GERD (gastroesophageal reflux disease) TMJ tenderness, bilateral Otalgia, bilateral Chronic nausea Obesity Surgical History (Updated 11/06/24 @ 10:45 by Jannie Tovar) Hx of cholecystectomy (~10/2024) Hx of wisdom tooth extraction S/P ERCP Social History Smoking/Tobacco Use Status: Former Tobacco Use Quit Date: 10/29/13 Smoking risk assessment performed?: Yes Alcohol Intake: never Drug use: Never Substance use type: does not use Housing: house Do you feel safe at home: Yes Do you feel safe in your relationship?: Yes
[2024-12-31] MEDS: Ketorolac 15 MG/ML VIAL IVP (08:44)
[2024-12-31] MEDS: Normal Saline 1,000 ML 1000 ML IV (08:45)
[2024-12-31 08:47] LABS: Abs Immature Grans 0.05 10^3/uL (0.0-0.06); Absolute Basophil Count 0.04 10^3/uL (0.0-0.2); Absolute Eosinophil Count 0.02 10^3/uL (0.0-0.7); Absolute Lymphocyte Count 1.03 10^3/uL (1.2-3.4); Absolute Neutrophil Count 10.53 10^3/uL (1.2-6.7); Basophils % 0.3 %; Eosinophils % 0.2 %; HCT 42.5 % (36.0-46.0); HGB 14.3 g/dL (11.2-15.7); Immature Grans % 0.4 %; Lactate 0.8 mmol/L (<or=2.0); Lymphocytes % 8.3 %; MCH 30.1 pg (27.0-33.0); MCHC 33.6 % (32.0-36.0); MCV 90 fL (80-95); MPV 8.7 fL (8.0-11.0); Monocytes % 6.3 %; Neutrophils % 84.5 %; Platelet Count 317 10^3/uL (130-400); RBC 4.75 10^6/uL (3.93-5.22); RDW 12.4 % (11.7-14.6); RDW-SD 40.7 fL; WBC 12.46 10^3/uL (4.4-10.8)
[2024-12-31 08:48] LABS: Absolute Monocyte Count 0.78 10^3/uL (0.1-0.8)
[2024-12-31] MEDS: Normal Saline - Diluent 50 ML VIAL IJ (08:56)
[2024-12-31] MEDS: Omnipaque 350 MG/ML 500 ML BTL-Imaging package 75 ML IJ (09:02)
[2024-12-31 09:04] LABS: ALT 38 U/L (14-59); AST 27 U/L (15-37); Albumin 3.8 g/dL (3.4-5.0); Alkaline Phosphatase 56 U/L (46-116); Anion Gap 11.1 mmol/L (3-11); BUN 3 mg/dL (7-18); Bilirubin, Total 0.51 mg/dL (0.2-1.0); CO2 27.9 mmol/L (21.0-32.0); CREATININE 0.9 mg/dL (0.55-1.02); Calcium 9.8 mg/dL (8.5-10.1); Chloride 101 mmol/L (98-107); Estimated GFR 87.65 (mL/min/1.73m2); Glucose 96 mg/dL (74-106); Lipase 44 U/L (<78); Sodium 140 mmol/L (136-145); Total Protein 8.4 g/dL (6.4-8.2)
--- NOTE | 2024-12-31 09:06 | DI.CT_ITS ---
Exam(s) CT ABDOMEN PELVIS W EXAM: CT ABDOMEN PELVIS W CLINICAL HISTORY: ruq pain, recent ivan bili duct stent removal. TECHNIQUE: Imaging Protocol: Axial computed tomography images with coronal and sagittal reformatted images were created and reviewed CONTRAST MATERIAL: Intravenous: Omnipaque-350 75cc Oral: None COMPARISON: MR MR ABDOMEN WO from 10/23/2024 FINDINGS: VISUALIZED LUNG BASES: No nodules nor pleural effusions evident. ABDOMEN: There is no ascites. LIVER: There is mild dilatation of intrahepatic ducts and the CBD is slightly dilated and exhibits so mewhat shaggy appearance. There is no radiopaque stent visible within the CBD (requisition states th at new stent was inserted 1 day ago). GALLBLADDER/BILIARY: Gallbladder surgically absent. There is no abnormal mass nor fluid collection i n the gallbladder fossa. PANCREAS: No evidence of pancreatitis nor dilatation of the pancreatic duct. No pancreatic lesions e vident. SPLEEN: zz Splenic and portal veins are patent. ADRENALS: There are no significant adrenal masses. KIDNEYS:No cysts evident. No solid renal masses. No calculi nor hydronephrosis.. ABDOMINAL AORTA: Abdominal aorta is not enlarged. LYMPH NODES:There is no retroperitoneal nor paraaortic adenopathy. ABDOMINAL WALL: No evidence of significant anterior abdominal wall nor inguinal hernia. GI: There are few fluid-filled centrally located small bowel loops which measure up to 2.4 cm. Trans ition to normal small bowel appearance is in the midline. The stomach is not distended. Slight hazi ness around the duodenum is noted. PELVIS: GI: No evidence of appendicitis.No evidence of sigmoid diverticulitis. LYMPH NODES: There is no intrapelvic nor inguinal adenopathy. REPRODUCTIVE: Uterus and adnexal regions appear age-appropriate. There is no free fluid in the pelvi s. URINARY BLADDER: No calculi nor obvious masses evident OSSEOUS: No fractures and no significant osseous lesions. IMPRESSION: 1. Compared to the MRI scan of 10/23/2024 there has been interval cholecystectomy. 2. There is no abnormal fluid collection in the gallbladder fossa but there is dilatation of the bili mercedes tree. CBD diameter is 9-10 mm. There are no obvious radiopaque calculi seen in the CBD but ther e is enhancement of the CBD wall. This may indicate cholangitis. The cystic duct remnant also appea rs dilated. There is some mild streaking around these biliary structures as well as around the duode num which may be from recent instrumentation. There is no radiopaque stent visible in the CBD nor wi thin the duodenum. 3. There is slightly prominent central bowel loops with transition point in the midline. These bowel loops, however, measure only up to 2.4 cm. Stomach is not distended. No intraluminal stent is seen in the bowel loops. 4. No evidence of pancreatitis nor dilatation of the pancreatic duct. Report called by myself to ER physician 12/31/2024 at 9:40 a.m. RADIATION DOSE DELIVERED: 621.42mGy.cm Total DLP DATA REPOSITORY: All CT scans at this facility are submitted to the National Radiology Data Registry (NRDR) Dose Index Registry (DIR) with the [employer] (A[employer]). RADIATION OPTIMIZATION: All CT scans at this facility use at least one of these dose optimization te chniques: automated exposure control; mA and/or kV adjustment per patient size (includes targeted exa ms where dose is matched to clinical indication); or iterative reconstruction.
[2024-12-31 10:01] LABS: Bilirubin Negative (Negative); Blood Trace-intact (Negative); Clarity Clear (Clear); Glucose Negative (Negative); Ketones Trace mg/dL (Negative); Leukocyte Esterase Negative (Negative); Nitrite Negative (Negative); Urobilinogen 0.2 mg/dL (Up to 0.2)
[2024-12-31 10:08] LABS: Bacteria Negative HPF (Negative); C & S Indicated? No; Casts Negative LPF (Negative); Crystals Negative HPF (Negative); Epithelial Cells Few HPF (Negative); Mucus Negative (Negative); RBC 0-2 HPF (0-2); WBC 0-2 HPF (0-5)
[2024-12-31] MEDS: MYLANTA 30 ML, LIDOCAINE 2% VISCOUS UD 15 ML PO (10:45)
[2024-12-31] MEDS: Ondansetron O.D.T. 4 MG TABEF, 3 TABS/BTL PO (11:08)
[2024-12-31 11:13] VITALS: BP 143/76; PULSE 99; RESP 15; O2SAT 100
== END 2024-12-31 11:15 | disposition home or self-care (01) ==
PROVIDERS: Emergency Provider Student in an Organized Health Care Education/Training Program; PCP Family Medicine
DX: R10.11 Right upper quadrant pain (principal); Z90.49 Acquired absence of other specified parts of digestive tract; Z87.891 Personal history of nicotine dependence
CPT/HCPCS: 80053; 83690; 96361; 96374; 99285; 74177; 81003; 81015; 83605; 85025; J1885

== ENCOUNTER 2025-01-01 01:00 | Inpatient (IN) | payer BC, SELFPAY ==
[2025-01-01] VITALS (120 sets, daily range): BP systolic 98–157; BP diastolic 39–114; PULSE 90–162; RESP 11–43; TEMP 36.3–37; O2SAT 18–100
--- NOTE | 2025-01-01 01:00 | RT.EKG_ITS ---
APPROVED REPORT Exam: Resting ECG Reason for Exam: chest pain Patient Location: E HR:121 bpm ECG Measurements Heart Rate 121 AXIS NJ 157 P 50 QRSd 79 QRS 82 QT 291 T -17 QTc 413 Conclusion Sinus tachycardia...rate> 99 Probable left atrial enlargement...P >50mS, <-0.10mV V1 Normal [place] Nonspecific ST-T changes There are no significant changes compared to prior EKG performed on 10/23/2024 at 08:05.
--- NOTE | 2025-01-01 01:10 | ED.GENADUL_ITS ---
Discharge Plan Disposition Condition: Stable Discharge Details Chief Complaint: Chest Pain Clinical Impression: Upper abdominal pain, Sinus tachycardia, Leukocytosis, Elevated liver function tests Primary Care Provider: Bernadine Arzola ED Provider: Luis Urbans and New Rx's Prescriptions: No Action pantoprazole 40 mg tablet,delayed release (DR/EC) 40 mg PO DAILY medroxyprogesterone 150 mg/mL syringe 150 mg IM [id number] ondansetron 4 mg tablet,disintegrating 4 mg PO Q8H PRN Patient Comments: DISSOLVE ONE TABLET ON THE TONGUE EVERY 8 HOURS NEEDED HPI General Mode of arrival: ambulatory . Date/Time Provider Initiated Documentation: 01/01/25 01:10 . Limitations to Documentation: no limitations . Information obtained by: patient, RN notes reviewed and old records reviewed . HPI Narrative: Patient presents to ED with complaint of epigastric/substernal pain that began yesterday afternoon. She thought it was related to her heartburn because she had not taken her medication yesterday until late in the afternoon. She was seen here yesterday morning for right upper quadrant pain with unremarkable workup in the setting of stent removal from the biliary duct the day prior at [facility]. Patient reports that the pain she is having now began while she was here but was not significant and she thought it would go away. It is not like the right upper quadrant pain she was having. She is reporting that pain is worse with breathing. She does not feel short of breath however. She has had no sweats or lightheadedness. She had a little bit of nausea but no vomiting. Denies any leg pain or leg swelling. Pain radiates a little bit to the left but not into the back, arms or neck. She is not a smoker and has no history of hypertension, high cholesterol, diabetes. Related Data Home Medications ?Medication ?Instructions ?Recorded ?Confirmed medroxyprogesterone 150 mg/mL 150 mg IM [id number] 12/01/22 01/01/25 intramuscular syringe pantoprazole 40 mg tablet,delayed 40 mg PO DAILY 12/01/22 01/01/25 release ondansetron 4 mg disintegrating 4 mg PO Q8H PRN 01/01/25 01/01/25 tablet Allergies Allergy/AdvReac Type Severity Reaction Status Date / Time No Known Allergies Allergy Verified 01/01/25 01:13 General JUAN CARLOS: 3 Exam Narrative Exam Narrative: Const: WDWN female in NAD. VS per triage. HEENT: NC/AT. Normal facial exam. Neck: Supple. Trachea midline. Lungs: Normal respiratory effort. Lungs are clear. Cor: RRR without murmur. Good radial pulses. Tachycardic GI: Soft/ND/NT. Neuro: A+O x 3. Normal speech, mentation, gait. Cranial nerves II - XII grossly intact. No gross motor or sensory deficit. Ext: No C/C/E. Procedure EJ/Peripheral IV/Phlebotomy Date of Procedure: 01/01/25 Time of Procedure: 02:28 Indication: Nursing/tech could not get IV Skin Cleansed in Sterile Fashion: Yes Laterality: Left Insertion Site: Basilic Size & Type: 18 ga. Number ofAttempts(See previous attempts in note section): 2 Dressing: IV Dressing Placed Ultrasound: Other (Ultrasound used, image not saved) Procedure Description/Note: Initial attempt by me with standard IV unsuccessful because of length. Longer length IV used on second attempt with success. Medical Decision Making Patient presenting to ED with epigastric/substernal pain that began yesterday afternoon, had started prior to ED discharge yesterday. She thought originally that was her heartburn. She started taking her pantoprazole again and has had no change. Pain continues to be present and may be somewhat worse. She does feel that breathing makes it worse but she does not feel short of breath. Pain does not really radiate. She has nausea but no vomiting. Denies fever. Status post biliary stent removal on the fourth, 2 days ago. Seen here yesterday with labs and CT scan that were reassuring. Reports pain she is having now is different in the right upper quadrant pain she had when she came in yesterday morning. EKG is sinus rhythm with normal axis and intervals, nonspecific ST changes. This is unchanged from previous done September 2024. Differential includes pancreatitis, acid related disease, potential PE given tachycardia and pleuritic pain with recent procedure and surgery in October. Less likely to be cardiac but will check a single troponin. Nursing unable to establish access and lab unable to get blood as well. I was able to place an ultrasound-guided IV in the left upper extremity just medial and proximal to the antecubital fossa. GI cocktail given orally, famotidine and prochlorperazine given IV. 03:10 - Patient's labs with a D-dimer over thousand. White count is 14 up from 12 yesterday. Liver function completely elevated with total bilirubin of 5.3, AST 450, ALT 476. Yesterday liver function was normal. Troponin is negative. Lipase is normal. Given elevated D-dimer and pleuritic chest pain will obtain CTA of the chest. Given a dramatic change in liver function will continue down through with abdomen/pelvic CT to compare to yesterday's. 04:30 - CTA of chest is normal. CT of abd/pelvis is unchanged compared to yesterday except for possibility of some duodenitis. Images pushed to [facility] and consult requested given change in LFTs, rising WBC and abdominal pain. 05:20 - Discussed with GI at [facility]. Recommend starting antibiotic and obtaining MRCP in morning. Will keep NPO except ice chips, continue fluids at 125 ml/hr. Patient reporting no pain currently. Abdomen remains benign but patient continues to be tachycardic. She is aware of and agreeable to plan as outlined. Will keep in ED pending MRCP. Medical Records Medical records reviewed: Yes I reviewed the patient's medical records. Medical records narrative: previous surgery notes, [facility] notes Lab Data Lab results reviewed: Yes I reviewed the patient's lab results. Lab results narrative: see [facility] ECG Data Attestation: I personally reviewed and interpreted this ECG (s) as follows: Prior ECG tracings: available for review Interpretation: See [facility] All Active Problems (Updated 01/01/25 @ 05:23 by Luis Urban MD) Elevated liver function tests (Acute) Leukocytosis (Acute) Sinus tachycardia (Acute) Upper abdominal pain (Acute) Contraceptive management (Acute) Abnormal auditory perception of both ears (Acute) Medical History Carpal tunnel syndrome Chronic headaches GERD (gastroesophageal reflux disease) Chronic nausea Obesity Surgical History Hx of cholecystectomy (~10/2024) Hx of wisdom tooth extraction S/P ERCP Social History Smoking/Tobacco Use Status: Former Tobacco Use Quit Date: 10/29/13 Smoking risk assessment performed?: Yes Alcohol Intake: never Drug use: Never Substance use type: does not use Housing: house Do you feel safe at home: Yes Do you feel safe in your relationship?: Yes
[2025-01-01] MEDS: Prochlorperazine 10 MG/2 ML VIAL IVP (02:20)
[2025-01-01] MEDS: Famotidine 20 MG/2 ML VIAL IVP (02:21)
[2025-01-01 02:28] LABS: Lab Add On Test DONE
[2025-01-01 02:33] LABS: Abs Immature Grans 0.08 10^3/uL (0.0-0.06); Absolute Basophil Count 0.04 10^3/uL (0.0-0.2); Absolute Eosinophil Count 0.01 10^3/uL (0.0-0.7); Basophils % 0.3 %; Eosinophils % 0.1 %; HCT 41.3 % (36.0-46.0); Immature Grans % 0.6 %; Lymphocytes % 2.8 %; MCH 30.1 pg (27.0-33.0); MCHC 33.9 % (32.0-36.0); MCV 89 fL (80-95); Monocytes % 6.3 %; Neutrophils % 89.9 %; Platelet Count 314 10^3/uL (130-400); RBC 4.65 10^6/uL (3.93-5.22); RDW-SD 42.2 fL; WBC 14.35 10^3/uL (4.4-10.8)
[2025-01-01 02:36] LABS: Lipase 36 U/L (<78)
[2025-01-01 02:43] LABS: ALT 476 U/L (14-59); AST 450 U/L (15-37); Albumin 3.8 g/dL (3.4-5.0); Alkaline Phosphatase 132 U/L (46-116); Anion Gap 9.3 mmol/L (3-11); BUN 4 mg/dL (7-18); Bilirubin, Total 5.34 mg/dL (0.2-1.0); CO2 27.7 mmol/L (21.0-32.0); Calcium 9.6 mg/dL (8.5-10.1); Chloride 102 mmol/L (98-107); Estimated GFR 77.24 (mL/min/1.73m2); Glucose 141 mg/dL (74-106); Potassium 4.2 mmol/L (3.5-5.1); Sodium 139 mmol/L (136-145); Total Protein 8.5 g/dL (6.4-8.2); Troponin I 4 ng/L (<or=51)
[2025-01-01 02:49] LABS: D-Dimer 1117 ng/mlFEU (<500)
[2025-01-01] MEDS: MORPHine 4 MG/ML SYR IVP (03:02)
[2025-01-01] MEDS: Lactated Ringers 1,000 ML 1000 ML IV (03:04)
[2025-01-01] MEDS: Omnipaque 350 MG/ML 100 ML BTL 75 ML IJ (03:31)
[2025-01-01] MEDS: Normal Saline - Diluent 50 ML VIAL IJ (03:32)
--- NOTE | 2025-01-01 03:32 | DI.CT_ITS ---
Exam(s) CT CHEST PE ABD PELVIS W EXAM: CT CHEST PE ABD PELVIS W CLINICAL HISTORY: pleuritic CP with elevated D-dimer; elevated LFT. TECHNIQUE: Imaging Protocol: Axial CT angiography was performed with multi-slice acquisition and m ulti-planar and/or 3D reconstructions. CONTRAST MATERIAL: Intravenous: Omnipaque 350 Contrast volume:75 mL Oral: None COMPARISON: CT CT ABDOMEN PELVIS W from 12/31/2024 FINDINGS: CHEST: PULMONARY ARTERIES: There are no intra-arterial filling defects to suggest the presence of acute pulm onary emboli. LUNGS: There is no evidence of pulmonary infarction.No confluent infiltrates. There are no pleural e ffusions. MEDIASTINUM: There is no hilar nor mediastinal adenopathy. CARDIAC: Heart size is normal. There is no pericardial effusion. Caliber of the thoracic aorta is n ormal and there is no evidence of aortic dissection. Ventricular ratio is 1/1. There is no reflux o f IV contrast into the intrahepatic IVC. OSSEOUS: No significant osseous lesions.. ABDOMEN: There is no ascites. However, there is some mild increased streaking now evident in the gallbladder fossa which was not evident on yesterday's scan. There is also increase fat streaking just lateral t o the 3rd part of the duodenum. There is no free air evident. No distinct abscess. LIVER: Dilated intrahepatic ducts are again noted. The CBD is also again noted be dilated. On 1 axi al image (series 26/image 30) there is a subtle suggestion of a possible noncalcified calculus in the CBD measuring 3 mm. GALLBLADDER/BILIARY: Gallbladder is surgically absent. Increased streaking in the gallbladder fossa noted. CBD dilated to 12 mm. PANCREAS: No evidence of pancreatic mass nor dilatation of the pancreatic duct. There is no CT evide nce of acute pancreatitis. SPLEEN: Spleen is not enlarged. There are no intrasplenic lesions. Splenic and portal veins are lee nt. ADRENALS: There are no significant adrenal masses. KIDNEYS:No cysts evident. No calculi nor hydronephrosis. No solid renal masses. ABDOMINAL AORTA: Abdominal aorta is not enlarged. LYMPH NODES: There is no retroperitoneal or para-aortic adenopathy. ABDOMINAL WALL/GI: No evidence of significant anterior abdominal wall hernia. No bowel obstruction. PELVIS: LYMPH NODES: There is no intrapelvic nor inguinal adenopathy. GI: No evidence of appendicitis.No evidence of sigmoid diverticulitis. URINARY BLADDER: No calculi nor masses evident REPRODUCTIVE: Uterus and adnexal regions appear unremarkable. There is no free fluid in the pelvis. OSSEOUS: No significant osseous lesions. No fractures. IMPRESSION: 1. No evidence of acute pulmonary emboli nor pulmonary infarction. No evidence of aortic dissection. 2. No significant infiltrates nor pleural effusions nor intrathoracic adenopathy. 3. Recent cholecystectomy and biliary stent removal. There is persistent dilatation of the entire bi liary tree and on this study there is a very subtle suggestion of a possible noncalcified 3 millimete r calculus in the CBD. Recommend MRCP to determine if there are calculi in the CBD.. 4. There is also slightly increasing streaking in the gallbladder fossa and adjacent to the 3rd part of the duodenum. This patient has had recent instrumentation and recent removal of endo biliary sten t. There is no free air evident in the region of the CBD and duodenum. Close follow-up of this find ing is recommended. 5. There is no evidence of pancreatitis nor dilatation pancreatic duct. RADIATION DOSE DELIVERED: 763.72mGy.cm Total DLP DATA REPOSITORY: All CT scans at this facility are submitted to the National Radiology Data Registry (NRDR) Dose Index Registry (DIR) with the [employer] (ACR). RADIATION OPTIMIZATION: All CT scans at this facility use at least one of these dose optimization te chniques: automated exposure control; mA and/or kV adjustment per patient size (includes targeted exa ms where dose is matched to clinical indication); or iterative reconstruction.
--- NOTE | 2025-01-01 04:26 | DI.VRAD_ITS ---
PROCEDURE INFORMATION: Exam: CTA Chest With Contrast CTA Abdomen With Contrast Exam date and time: 01/01/2025 3:11 AM Age: 29 years old Clinical indication: Pain; Prior surgery; Surgery date: Post-operative (0-2 days); Surgery type: Biliary stent removed. Gallbladder removal back in October; Pleuritic cp with elevated d-dimer; Elevated lft. Biliary stent removed 12/30; Lfts normal 12/31 TECHNIQUE: Imaging protocol: Computed tomographic angiography of the chest with contrast. Exam focused on the arteries. Computed tomographic angiography of the abdomen with contrast. Exam focused on the arteries. 3D rendering (Not supervised by radiologist): MIP and/or 3D reconstructed images were created by the technologist. Radiation optimization: All CT scans at this facility use at least one of these dose optimization techniques: automated exposure control; mA and/or kV adjustment per patient size (includes targeted exams where dose is matched to clinical indication); or iterative reconstruction. Contrast material: [id number]; Contrast volume: 75 ml; Contrast route: INTRAVENOUS (IV); COMPARISON: CT ABDOMEN PELVIS W 12/31/2024 8:58 AM FINDINGS: VASCULATURE: Pulmonary arteries: Normal. No pulmonary emboli. Aorta: No aortic aneurysm. No aortic dissection. Celiac trunk and mesenteric arteries: No occlusion or significant stenosis. Renal arteries: No occlusion or significant stenosis. CHEST: Lungs: Unremarkable. No consolidation. No masses. Pleural spaces: Unremarkable. No pneumothorax. No pleural effusion. Heart: Unremarkable. No cardiomegaly. No pericardial effusion. ABDOMEN AND PELVIS: Liver: Mild intrahepatic and extrahepatic biliary dilation, similar to comparison study. No obstructive etiology identified. Gallbladder and biliary ducts: Gallbladder surgically absent. Pancreas: Unremarkable. No mass. No ductal dilation. Spleen: Unremarkable. No splenomegaly. Adrenal glands: Unremarkable. No mass. Kidneys: Unremarkable kidneys. No solid mass. No hydronephrosis. Stomach and bowel: Mild wall thickening of the proximal duodenum, with minimal adjacent fat stranding, possibly duodenitis. Appendix: Appendix normal. Intraperitoneal space: Unremarkable. No free air. No significant fluid collection. Lymph nodes: Unremarkable. No enlarged lymph nodes. Bones/joints: Unremarkable. No acute fracture. Soft tissues: Unremarkable. IMPRESSION: 1. Mild wall thickening of the proximal duodenum, with minimal adjacent fat stranding, possibly duodenitis. 2. Mild intrahepatic and extrahepatic biliary dilation, similar to comparison study. No obstructive etiology identified. Dictated and Authenticated by: Fernando Machado MD. Orderin Wilmar Smith MD
--- NOTE | 2025-01-01 04:45 | DI.MRI_ITS ---
Exam(s) MR ABDOMEN WO EXAM: MR ABDOMEN WO CLINICAL HISTORY: biliary stent removed on 12/30; WBC and LFTs elevate TECHNIQUE: Multiplanar multisequence MRI and MRCP was performed on a 1.5 maksim unit No intravenous contrast COMPARISON: CT CT CHEST PE ABD PELVIS W from 01/01/2025 FINDINGS: VISUALIZED LUNG BASES: No pleural effusions evident. LIVER: There no significant hepatic lesions. There is dilatation of intrahepatic ducts in both right and left hepatic lobes. A small benign cyst is noted in the right hepatic lobe. No solid liver mas ses. BILIARY/MRCP: Gallbladder is again noted to be surgically absent (recent). There is no abnormal flui d collection in the gallbladder fossa. However, there is dilatation of the biliary tree, both intra and extrahepatic. There are also 3 calculi evident in the cystic duct remnant and another calculus e vident in the lower CBD pancreatic head level. The CBD diameter is dilated to 1.4 cm above this leve l. And There is some streaking in the fat lateral to the 3rd part of the duodenum. This is seen extending f rom the duodenal wall towards the right hepatic lobe. There is no formed abscess. No obvious free a ir. PANCREAS: There is no evidence of pancreatic mass nor dilatation of the pancreatic duct.No evidence o f pancreatitis. SPLEEN: Spleen is not enlarged and there are no intrasplenic lesions. ADRENALS: There are no significant adrenal masses. KIDNEYS: No solid renal masses. No hydronephrosis.No cysts evident. ABDOMINAL AORTA: Not enlarged and there is no significant para-aortic adenopathy. ANTERIOR ABDOMINAL WALL/GI: There is no evidence of significant anterior abdominal wall hernia in the field of view of this study.Is no evidence of obvious bowel obstruction. OSSEOUS: There are no lytic osseous lesions in the field of view of this study. IMPRESSION: 1. In this patient who has had recent cholecystectomy there are multiple small gallstones noted in th e cystic duct remnant as well as in the lower CBD and there is dilatation of the biliary tree above t his level, both intra and extrahepatic. The CBD diameter is 1.4 cm. 2. There is some abnormal streaking adjacent to the 3rd part of the duodenum. This may be related to recent instrumentation. 3. There is no evidence of pancreatitis nor dilatation of the pancreatic duct at this time. Findings called by myself to ER physician 01/01/2025 at 11 15 a.m. DATA REPOSITORY:
[2025-01-01] MEDS: Normal Saline 1,000 ML 125 ML IV (04:55)
[2025-01-01] MEDS: Normal Saline 1,000 ML 1000 ML IV (10:31)
--- NOTE | 2025-01-01 12:59 | W.EDPROG ---
Date of service: 01/01/25 Time of Service: 12:59 Medical Decision Making Patient was received in signout, pending MRCP. MRCP shows evidence of stone stuck in the ducts. We have given her second dose of Zosyn at this time. She remains tachycardic but pain-free currently. We contacted [facility] and discussed the case with Dr. Mcgee, she recommends transfer for ERCP and stone removal, and then admission for continued medical management. Discussed the case with local surgeon Dr. Fuchs, and he does recommend admission to the medicine service as there are no current surgical interventions indicated. Discussed the case with Dr. Silverman, he accepts the patient for admission. Of note, [facility] placed a time constraint on us and stated that the patient needed to be down there by 3 PM otherwise the slot would be lost and they would not be able to perform the procedure today. Because of this there would not be adequate time to admit the patient formally to a bed upstairs and [facility]. Because of this the decision was made to physically keep the patient in the ED, however the hospitalist team has placed admission orders and the patient is currently admitted to the MedSurg floor and will come back to [facility] once she has done her procedure. This was all discussed with Dr. Silverman, as well as his clinical team. This is also discussed with nursing avionics supervisor, ED director and ED supervisor public health nursing and care chief deputy clerk/bailiff at the bowling or skating front desk clerk. FINDINGS: VISUALIZED LUNG BASES: No pleural effusions evident. LIVER: There no significant hepatic lesions. There is dilatation of intrahepatic ducts in both right and left hepatic lobes. A small benign cyst is noted in the right hepatic lobe. No solid liver masses. BILIARY/MRCP: Gallbladder is again noted to be surgically absent (recent). There is no abnormal fluid collection in the gallbladder fossa. However, there is dilatation of the biliary tree, both intra and extrahepatic. There are also 3 calculi evident in the cystic duct remnant and another calculus evident in the lower CBD pancreatic head level. The CBD diameter is dilated to 1.4 cm above this level. And There is some streaking in the fat lateral to the 3rd part of the duodenum. This is seen extending from the duodenal wall towards the right hepatic lobe. There is no formed abscess. No obvious free air. PANCREAS: There is no evidence of pancreatic mass nor dilatation of the pancreatic duct.No evidence of pancreatitis. SPLEEN: Spleen is not enlarged and there are no intrasplenic lesions. ADRENALS: There are no significant adrenal masses. KIDNEYS: No solid renal masses. No hydronephrosis.No cysts evident. ABDOMINAL AORTA: Not enlarged and there is no significant para-aortic adenopathy. ANTERIOR ABDOMINAL WALL/GI: There is no evidence of significant anterior abdominal wall hernia in the field of view of this study.Is no evidence of obvious bowel obstruction. OSSEOUS: There are no lytic osseous lesions in the field of view of this study. IMPRESSION: 1. In this patient who has had recent cholecystectomy there are multiple small gallstones noted in the cystic duct remnant as well as in the lower CBD and there is dilatation of the biliary tree above this level, both intra and extrahepatic. The CBD diameter is 1.4 cm. 2. There is some abnormal streaking adjacent to the 3rd part of the duodenum. This may be related to recent instrumentation. 3. There is no evidence of pancreatitis nor dilatation of the pancreatic duct at this time. Quality:[facility] Health Related Social Needs: No Data to Display Critical Care Time Critical Care Time Critical Care Time: Yes Total Critical Care Time: 45 Attestation: Upon my evaluation, this patient had a high probability of imminent or life-threatening deterioration, which required my direct attention, intervention, and personal management. I have personally provided 45 minutes of critical care time exclusive of time spent on separately billable procedures. Time includes review of laboratory data, radiology results, discussion with consultants, and monitoring for potential decompensation. Interventions were performed as documented. Discharge Plan Disposition Patient Disposition: Admit to [facility] Condition: Stable Discharge Details Chief Complaint: Chest Pain Clinical Impression: Upper abdominal pain, Sinus tachycardia, Leukocytosis, Elevated liver function tests, Ascending cholangitis, Choledocholithiasis Admit Date/Time: 01/01/25 12:50 Admit Provider: Pb Dallas Attending Provider: Pb Dallas Primary Care Provider: Bernadine Arzola ED Provider: Marvin Cheek Discharge Data Discharge Date/Time-TO BE ENTERED AT DEPARTURE: 01/01/25 13:26
--- NOTE | 2025-01-01 13:16 | HPE_ITS ---
Date of service: 01/01/25 Time of Service: 13:16 Assessment and Plan Assessment and plan (1) Sepsis: Status: Acute Assessment and plan: Currently admitted with tachycardia at 136, tachypnea in the 30s WBC at 14 and abdominal source IV fluid in progress (2) Ascending cholangitis: Status: Acute Assessment and plan: Continue ampicillin tazobactam Status post ERCP at [facility] (3) Elevated liver function tests: Status: Acute Assessment and plan: Status post instrumentation. Stent removal CMP in the morning (4) Sinus tachycardia: Status: Acute Assessment and plan: On youth support worker in the ED, patient back from [facility], S1, S2 - no ACS S&S or epigastric pain/ heartburn at this time negative troponin HR in the low 100's Expecting further resolution with IV hydration- no cardiac Hx reported (5) Upper abdominal pain: Status: Acute Assessment and plan: PRN pain meds (6) Nausea: Status: Acute Assessment and plan: ondansetron IV PRN No futher c/o s/p ERCP- resume diet Disccussed with Dr Dallas History of Present Illness History of Present Illness Chief Complaint: Abdominal pain, nausea vomiting N arrative: This 29 years old female patient with a past medical history of choledocholithiasis, cholecystitis status-post cholecystectomy and biliary stent placement and subsequent stent and stone removal on Sunday presented to the ED last night with complaint of nausea vomiting and abdominal pain. CT of abdomen and pelvis showed no radiopaque calculi, CBD dilated at 9-10 mm and most streaking around biliary structures and possible cholangitis. The patient was discharged home but returned with worsening of similar symptoms. The patient was afebrile, tachypneic in the low 30s, normotensive but tachycardic with heart rate in the 130s . WBC was 14,chemistry was unremarkable except for mild to moderate transaminitis. CTA of the chest abdomen pelvis positive for CBD dilation with possible noncalcified 3 mm calculus and recommendation for MRCP. Also seen were again increased streaking in the gallbladder most likely due to instrumentation and recent removal of endo biliary stent. Biliary MRCP confirmed the presence of calculi in the cystic duct remnant as well as in the lower CBD near the pancreatic head with CBD dilation at 1.4 cm. Hospitalist team was contacted to admit patient status post ERCP at [facility] with report of patient acceptance. The patient was admitted to the medical surgical floor telemetry for sepsis, cholangitis. Patient confirmed full CODE STATUS, denied fevers, chills, night sweats, reports transient nausea and last episode of vomiting last night. The patient denies hematemesis, constipation, diarrhea or hematochezia. Patient describes abdominal pain chest pain as heartburn and mostly pointing to her epigastric region and iron right subcostal area. Review of Systems All systems reviewed & are unremarkable except as noted in HPI and below PFSH All Active Problems (Updated 01/01/25 @ 19:18 by Annmarie Oconnor APRN) Nausea (Acute) Sepsis (Acute) Choledocholithiasis (Acute) Ascending cholangitis (Acute) Elevated liver function tests (Acute) Leukocytosis (Acute) Sinus tachycardia (Acute) Upper abdominal pain (Acute) Contraceptive management (Acute) Abnormal auditory perception of both ears (Acute) Medical History Carpal tunnel syndrome Chronic headaches GERD (gastroesophageal reflux disease) Chronic nausea Obesity Surgical History Hx of cholecystectomy (~10/2024) Hx of wisdom tooth extraction S/P ERCP Social History Smoking/Tobacco Use Status: Former Tobacco Use Quit Date: 10/29/13 Smoking risk assessment performed?: Yes Alcohol Intake: never Drug use: Never Substance use type: does not use Housing: house Do you feel safe at home: Yes Do you feel safe in your relationship?: Yes Meds Allergies and Home Medications Allergies Allergy/AdvReac Type Severity Reaction Status Date / Time No Known Allergies Allergy Verified 01/01/25 01:13 Home Medications ?Medication ?Instructions ?Recorded ?Confirmed ?Type medroxyprogesterone 150 mg/mL 150 mg IM [id number] 12/01/22 01/01/25 History intramuscular syringe pantoprazole 40 mg tablet,delayed 40 mg PO DAILY 12/01/22 01/01/25 History release ondansetron 4 mg disintegrating 4 mg PO Q8H PRN 01/01/25 01/01/25 History tablet Exam Narrative Exam Narrative: And oriented x 4, no focal deficit, clear lungs, S1-S2 regular no murmur, abdomen is nondistended soft nontender, no Wolff sign, no CVA tenderness moves all 4 extremities Results Labs 01/01/25 02:15 01/01/25 02:15 Labs: Laboratory Results - last 24 hr 01/01/25 01/01/25 02:15 04:06 WBC 14.35 H RBC 4.65 Hgb 14.0 Hct 41.3 MCV 89 MCH 30.1 MCHC 33.9 RDW 13.0 Plt Count 314 MPV 9.0 Immature Gran % 0.6 Neutrophils % 89.9 Lymphocytes % 2.8 Monocytes % 6.3 Eosinophils % 0.1 Basophils % 0.3 Nucleated RBC % 0.0 Absolute Neutrophils 12.90 H Absolute Lymphocytes 0.40 L Absolute Monocytes 0.90 H Absolute Eosinophils 0.01 Absolute Basophils 0.04 D-Dimer 1117 H VBG pH Cancelled VBG pCO2 Cancelled VBG pO2 Cancelled VBG HCO3 Cancelled VBG Total CO2 Cancelled VBG O2 Saturation Cancelled VBG Base Excess Cancelled Sodium 139 Potassium 4.2 Chloride 102 Carbon Dioxide 27.7 Anion Gap 9.3 BUN 4 L Creatinine 1.0 Est GFR (CKD-EPI 2020) 77.24 Glucose 141 H Calcium 9.6 Total Bilirubin 5.34 H AST 450 H ALT 476 H Alkaline Phosphatase 132 H Troponin I 4 Total Protein 8.5 H Albumin 3.8 Lipase 36 Add-On Test Request DONE Last Vital Signs Temp 37.0 C 01/01/25 01:08 Pulse 131 H 01/01/25 11:20 Resp 35 H 01/01/25 11:20 BP 113/54 L 01/01/25 11:15 Pulse Ox 96 01/01/25 11:20 Time Spent Time spent with Patient: >75 minutes Time was spent: preparing to see the patient(eg.review tests), obtaining and/or reviewing separately otained hiistory, ordering medications,tests, procedures, referring, communicating with other health landcare officer, indepentently interpreting results, counseling the patient and care coordination
--- NOTE | 2025-01-01 16:08 | NUR.NOTE ---
Belongings were bagged up, labeled with patient name and Irish GARZA from [facility] came and picked up belongings; took them to [facility]. Nursing Note:
[2025-01-01] MEDS: Enoxaparin 40 MG/0.4 ML SYR SC (20:10)
[2025-01-01] MEDS: Normal Saline Flush 10 ML SYR IVP (20:11)
[2025-01-01] MEDS: Lactated Ringers 1,000 ML 100 ML IV (20:43)
[2025-01-02] MEDS: Lactated Ringers 1,000 ML 100 ML IV (06:13)
[2025-01-02 06:22] LABS: ALT 207 U/L (14-59); AST 98 U/L (15-37); Albumin 2.4 g/dL (3.4-5.0); Alkaline Phosphatase 87 U/L (46-116); Anion Gap 8.7 mmol/L (3-11); BUN 6 mg/dL (7-18); Bilirubin, Total 3.4 mg/dL (0.2-1.0); CO2 24.3 mmol/L (21.0-32.0); CREATININE 0.7 mg/dL (0.55-1.02); Calcium 8.7 mg/dL (8.5-10.1); Chloride 111 mmol/L (98-107); Estimated GFR 118.51 (mL/min/1.73m2); Glucose 107 mg/dL (74-106); Potassium 3.9 mmol/L (3.5-5.1); Sodium 144 mmol/L (136-145)
[2025-01-02 07:46] VITALS: BP 114/73; PULSE 79; TEMP 36.5; O2SAT 97
[2025-01-02] MEDS: Pantoprazole 40 MG TABCR PO (08:18)
[2025-01-02 09:25] VITALS: RESP 15
--- NOTE | 2025-01-02 11:18 | DSE_ITS ---
Date of service: 01/02/25 Time of Service: 11:18 DS: Diagnosis Discharge Diagnosis (1) Sepsis: Status: Acute (2) Ascending cholangitis: Status: Acute (3) Elevated liver function tests: Status: Acute (4) Sinus tachycardia: Status: Acute (5) Upper abdominal pain: Status: Acute (6) Nausea: Status: Acute Discharge Plan Disposition Patient Disposition: Home Condition: Stable Discharge Details Reason For Visit: Sepsis, Acute Cholangitis, Abdominal Pain Admit Date/Time: 01/01/25 12:50 Admit Provider: Pb Dallas Attending Provider: Pb Dallas [facility] Course: This is a 29-year-old female patient past medical history of cholecystectomy, choledocholithiasis, biliary stent placement with history of subsequent stent placement and stone removal on Sunday prior to presentation. She came to the emergency department with complaints of nausea vomiting abdominal pain. CT of her abdomen did show a dilated common bile duct with concern for acute cholangitis. Labs did show elevated white count and transaminitis. An MRCP did in fact confirm calculi in the cystic duct. GI at [facility] was consulted and she was accepted for down and back ERCP. She was started on IV antibiotics and admitted under the hospitalist services. She was down and back to her for ERCP. Multiple stones within the cystic duct were removed. Final ductoscopy and cholangiogram did not reveal any residual filling defects within the opacified biliary system. She was transported back to an [facility]. Her diet was advanced clear liquids which she tolerated well and further advanced as tolerated. Hemodynamically she has remained stable with no further pain. Labs show i mproving liver function. She has had no fever. Tolerating oral intake bowels and bladder functioning. She is to be discharged home on ciprofloxacin 500 mg twice daily for 5 days. Will follow-up outpatient with her primary care provider advised to return sooner for new or worsening symptoms. discharge discussed with DR England Home Meds and New Rx's Prescriptions: New ciprofloxacin HCl [Cipro] 500 mg tablet 500 mg PO BID Qty: 10 0RF Continued pantoprazole 40 mg tablet,delayed release (DR/EC) 40 mg PO DAILY medroxyprogesterone 150 mg/mL syringe 150 mg IM [id number] ondansetron 4 mg tablet,disintegrating 4 mg PO Q8H PRN Patient Comments: DISSOLVE ONE TABLET ON THE TONGUE EVERY 8 HOURS NEEDED Discharge Instructions Instructions: Endoscopic Retrograde Cholangiopancreatography (DC) Additional Instructions: you had multiple stones within the cystic duct removed. They did not find any other issues after they were completed. it is recommended that you take antibiotics for 5 days, the prescription has been sent to your pharmacy, please start tonight taking it twice daily for 5 days. advance diet as tolerated. drink plenty of fluids to stay well hydrated. monitor for and report immediately: fever, abdominal pain, unable to keep fluids down, or any concerns. Referrals: Bernadine Arzola MD [Primary Care Provider] - Activity:: Activity as Tolerated Equipment/Supplies:: No Equipment Needed Diet:: As Tolerated Discharge Orders Discharge Orders: Discharge Order (Routine); Ordered 01/02/25 Ordered By: Yesica Vázquez DS: Summary Time Spent with Patient providing and/or coordinating discharge services: Greater than 30 minutes Status at Discharge Functional status at discharge: independent ambulation Overall status at discharge: patient is progressing back to baseline Mental Status: mental status grossly normal Speech and Movement: speech and movement normal Mood: congruent mood Affect: normal affect Quality:SDOH Health Related Social Needs: Health related social needs education (Z55.6) Exam Narrative Exam Narrative: Well-appearing female of stated age obese no acute distress head is atraumatic eyes nonicteric noninjected oral mucosas moist neck supple full range of motion cardiovascular regular rate and rhythm respirations even nonlabored her abdomen is obese soft nontender no masses no guarding no rebound. Moves all extremities neurologic she awake alert oriented no focal deficits psychiatric appropriate mood and affect Psych Mental Status: mental status grossly normal Speech and Movement: speech and movement normal Mood: congruent mood Affect: normal affect DS: Data Vitals/I&O Vitals and I&O: Vital Signs Temperature 36.5 C 01/02/25 07:46 Temperature Source Temporal Artery Scan 01/02/25 07:46 Pulse 79 01/02/25 07:46 Pulse Rhythm Regular 01/01/25 19:26 Pulse 136 H 01/01/25 13:10 Respiratory Rate 15 01/02/25 09:25 Respiratory Effort Normal 01/01/25 19:26 Respiratory Depth Normal 01/01/25 19:26 Respiratory Pattern Normal 01/01/25 19:26 Blood Pressure 114/73 01/02/25 07:46 Blood Pressure Mean 65 01/01/25 12:15 Blood Pressure Position Sitting 01/01/25 04:18 Pulse Oximetry 97 01/02/25 07:46 Oxygen Delivery Method Room Air 01/02/25 07:46 Oxygen Flow Rate 0 01/02/25 07:46 Pain Level 0 01/02/25 07:46 Comment patient is asleep and did not want to be woken up for vitals 01/02/25 04:16 Intake & Output 01/01/25 01/01/25 01/02/25 11:59 23:59 11:59 Intake Total 2570.75 / 2720.75 150 / 2720.75 1540 / 1540 Balance 2570.75 / 2720.75 150 / 2720.75 1540 / 1540 Weight 88.451 kg 88.451 kg Intake: IV 2570.75 / 2720.75 150 / 2720.75 1100 / 1100 Oral 440 / 440 Other: Urine Color Yellow Yellow Urine Appearance Clear Clear Data Completed and Pending Labs on day of discharge: Labs from last 24 hours 01/02/25 05:19 Sodium 144 Potassium 3.9 Chloride 111 H Carbon Dioxide 24.3 Anion Gap 8.7 BUN 6 L Creatinine 0.7 Est GFR (CKD-EPI 2020) 118.51 Glucose 107 H Calcium 8.7 Total Bilirubin 3.4 H AST 98 H ALT 207 H Alkaline Phosphatase 87 Total Protein 6.0 L Albumin 2.4 L PFSH All Active Problems (Updated 01/01/25 @ 19:18 by Annmarie Oconnor APRN) Nausea (Acute) Sepsis (Acute) Choledocholithiasis (Acute) Ascending cholangitis (Acute) Elevated liver function tests (Acute) Leukocytosis (Acute) Sinus tachycardia (Acute) Upper abdominal pain (Acute) Contraceptive management (Acute) Abnormal auditory perception of both ears (Acute) Medical History Carpal tunnel syndrome Chronic headaches GERD (gastroesophageal reflux disease) Chronic nausea Obesity Surgical History Hx of cholecystectomy (~10/2024) Hx of wisdom tooth extraction S/P ERCP Social History Smoking/Tobacco Use Status: Former Tobacco Use Quit Date: 10/29/13 Smoking risk assessment performed?: Yes Alcohol Intake: never Drug use: Never Substance use type: does not use Housing: house Do you feel safe at home: Yes Do you feel safe in your relationship?: Yes Time Spent with Patient Time Spent with Patient: 45-69 minutes Time was spent: preparing to see the patient(eg.review tests), obtaining and/or reviewing separately otained hiistory, ordering medications,tests, procedures, indepentently interpreting results and counseling the patient
--- NOTE | 2025-01-02 11:33 | PDOC.CMDIS ---
Date of service: 01/02/25 Time of Service: 11:33 LACE Index Scoring Tool Questions: Length of Stay (in days): 1 Was the patient admitted via the E.D.?: Yes E.D. Visits: 3 Answers: Total Score: 7 Risk of Readmission: Low Risk Care Management Discharge Plan Reason for Hospitalization: Sepsis, Acute Cholangitis Discharge Plan: Discharge home via private vehicle with family. Follow up with PCP and discharge plan of care as directed. No new services are ordered prior to discharge. Patient/Family Education Needs: Review discharge instructions and plan to follow up after discharge. Discuss ask me three. SDOH Health Related Social Needs: Health related social needs education (Z55.6)
--- NOTE | 2025-01-02 11:42 | CHAPLAIN ---
Christi was sitting up in bed when I visited. She was happy to tell me that she's being discharged today and just waiting for paperwork. I explained my role and offered support.
--- NOTE | 2025-01-02 12:56 | NUR.NOTE ---
charting reviewed with Shahid Parson, student nurse. Wendie Anders, MSN, RNC-OB (clinical instructor)Nursing Note:
== END 2025-01-02 12:11 | disposition home or self-care (01) | DRG 872 ==
LOC: ER 12:54 → MS 14:12
PROVIDERS: Emergency Medicine; Admitting Provider Family Medicine; Emergency Provider Student in an Organized Health Care Education/Training Program; PCP Family Medicine; Responsible Provider Nurse Practitioner Acute Care; Visit Provider Family Medicine
DX: A41.9 Sepsis, unspecified organism (principal); K83.09 Other cholangitis; R74.01 Elevation of levels of liver transaminase levels; D72.829 Elevated white blood cell count, unspecified; K21.9 Gastro-esophageal reflux disease without esophagitis; E66.9 Obesity, unspecified; Z87.891 Personal history of nicotine dependence; Z68.35 Body mass index [BMI] 35.0-35.9, adult
CPT/HCPCS: 00123; 36415; 71275; 74177; 80053; 82805; 83690; 93005; 96361; 96365; 96366; 96375; 99291; J1650; 74181; 84484; 85025; 85379; 93010; 99223; 99239; J0780; J2270; J2543; J3490

== ENCOUNTER 2025-01-23 17:43 | Outpatient (REF) | payer BC, SELFPAY ==
--- NOTE | 2025-01-23 15:30 | SKI_PTH ---
PATIENT: Christi Anderson LOC: [facility] U#:[id number] AGE/SX: 29/F ROOM: RE01/23/[address]: Bernadine Arzola : 1995 BED: DIS: 01/23/2025 SPEC #: [id number] RECD: 01/26/25 12:48 STATUS: CORNELIO REPerri #: [id number] OVIDIO: 01/23/25 15:[address]: Bernadine Arzola DEPT: Surgical Specimen RECD BY: Minnie Cummings Tissues: 1 - SKIN BIOPSY(SHAVE/PUNCH) Procedures: SKIN LEVEL 4 Comments: [id number]
== END 2025-01-23 17:44 | disposition home or self-care (01) ==
LOC: LBN 17:43
PROVIDERS: PCP Family Medicine; Visit Provider Family Medicine
DX: D22.9 Melanocytic nevi, unspecified (principal)
CPT/HCPCS: 88305

== ENCOUNTER 2025-02-16 07:40 | Outpatient (CLI) | payer BC, SELFPAY ==
[2025-02-16 07:29] LABS: Abs Immature Grans 0.01 10^3/uL (0.0-0.06); Absolute Basophil Count 0.05 10^3/uL (0.0-0.2); Absolute Eosinophil Count 0.15 10^3/uL (0.0-0.7); Absolute Lymphocyte Count 1.99 10^3/uL (1.2-3.4); Absolute Monocyte Count 0.72 10^3/uL (0.1-0.8); Absolute Neutrophil Count 3.91 10^3/uL (1.2-6.7); Basophils % 0.7 %; Eosinophils % 2.2 %; HCT 41.8 % (36.0-46.0); HGB 13.8 g/dL (11.2-15.7); Immature Grans % 0.1 %; Lymphocytes % 29.1 %; MCH 30.2 pg (27.0-33.0); MCV 92 fL (80-95); Monocytes % 10.5 %; Neutrophils % 57.4 %; Platelet Count 320 10^3/uL (130-400); RBC 4.57 10^6/uL (3.93-5.22); RDW 12.3 % (11.7-14.6); RDW-SD 41.1 fL; WBC 6.83 10^3/uL (4.4-10.8)
[2025-02-16 07:53] LABS: ALT 35 U/L (14-59); AST 26 U/L (15-37); Albumin 3.5 g/dL (3.4-5.0); Alkaline Phosphatase 77 U/L (46-116); Anion Gap 9.4 mmol/L (3-11); BUN 8 mg/dL (7-18); Bilirubin, Total 0.3 mg/dL (0.2-1.0); CO2 24.6 mmol/L (21.0-32.0); CREATININE 0.9 mg/dL (0.55-1.02); Calcium 9.5 mg/dL (8.5-10.1); Chloride 105 mmol/L (98-107); Estimated GFR 87.65 (mL/min/1.73m2); Glucose 84 mg/dL (74-106); Potassium 3.8 mmol/L (3.5-5.1); Sodium 139 mmol/L (136-145)
== END 2025-02-16 07:41 | disposition home or self-care (01) ==
LOC: LBO 07:40
PROVIDERS: PCP Family Medicine; Visit Provider Family Medicine
DX: R79.89 Other specified abnormal findings of blood chemistry (principal)
CPT/HCPCS: 36415; 80053; 85025

== ENCOUNTER 2025-04-08 19:33 | Emergency (ER) | payer BC, SELFPAY ==
[2025-04-08 19:38] VITALS: BP 148/80; PULSE 110; RESP 20; TEMP 36.7; O2SAT 98
[2025-04-08 20:15] VITALS: BP 140/77; PULSE 108; PULSE 97; RESP 20; O2SAT 100
[2025-04-08 20:16] VITALS: PULSE 106; PULSE 111; RESP 21; O2SAT 100
[2025-04-08 20:20] VITALS: PULSE 96; PULSE 97; RESP 20; O2SAT 100
[2025-04-08 20:28] LABS: Abs Immature Grans 0.03 10^3/uL (0.0-0.06); Absolute Basophil Count 0.06 10^3/uL (0.0-0.2); Absolute Eosinophil Count 0.17 10^3/uL (0.0-0.7); Absolute Lymphocyte Count 2.95 10^3/uL (1.2-3.4); Absolute Monocyte Count 0.67 10^3/uL (0.1-0.8); Absolute Neutrophil Count 5.86 10^3/uL (1.2-6.7); Basophils % 0.6 %; Eosinophils % 1.7 %; HCT 42.6 % (36.0-46.0); HGB 14.1 g/dL (11.2-15.7); Immature Grans % 0.3 %; Lymphocytes % 30.3 %; MCH 29.4 pg (27.0-33.0); MCHC 33.1 % (32.0-36.0); MCV 89 fL (80-95); MPV 8.8 fL (8.0-11.0); Monocytes % 6.9 %; Neutrophils % 60.2 %; Platelet Count 304 10^3/uL (130-400); RBC 4.79 10^6/uL (3.93-5.22); RDW 11.9 % (11.7-14.6); RDW-SD 38.6 fL; WBC 9.74 10^3/uL (4.4-10.8)
[2025-04-08] MEDS: Normal Saline 1,000 ML 1000 ML IV (20:31)
[2025-04-08] MEDS: FAMOTIDINE 20 MG in Normal Saline 100 ML 400 MG IVPB (20:32)
[2025-04-08] MEDS: Ketorolac 15 MG/ML VIAL 10 MG IVP (20:33)
[2025-04-08] MEDS: Ondansetron 4 MG/2 ML VIAL IVP (20:34)
[2025-04-08 20:57] LABS: ALT 28 U/L (14-59); AST 21 U/L (15-37); Albumin 3.6 g/dL (3.4-5.0); Alkaline Phosphatase 79 U/L (46-116); Anion Gap 9.5 mmol/L (3-11); BUN 7 mg/dL (7-18); Bilirubin, Total 0.2 mg/dL (0.2-1.0); CO2 26.5 mmol/L (21.0-32.0); CREATININE 0.9 mg/dL (0.55-1.02); Chloride 106 mmol/L (98-107); Estimated GFR 87.65 (mL/min/1.73m2); Glucose 104 mg/dL (74-106); Lipase 57 U/L (<78); Potassium 3.5 mmol/L (3.5-5.1); Sodium 142 mmol/L (136-145); Total Protein 8.2 g/dL (6.4-8.2)
[2025-04-08] MEDS: Ondansetron O.D.T. 4 MG TABEF, 3 TABS/BTL PO (21:33)
[2025-04-08 21:40] VITALS: BP 119/52; PULSE 94; RESP 18; O2SAT 99
--- NOTE | 2025-04-08 22:14 | ED.GENADUL_ITS ---
Discharge Plan Disposition Patient Disposition: Home Condition: Stable Discharge Details Clinical Impression: Epigastric abdominal pain Primary Care Provider: Bernadine Arzola ED Provider: Moustapha Hagan Home Meds and New Rx's Prescriptions: No Action pantoprazole 40 mg tablet,delayed release (DR/EC) 40 mg PO DAILY medroxyprogesterone 150 mg/mL syringe 150 mg IM [id number] Discharge Instructions Additional Instructions: Lab work is unremarkable and there is no elevation in your bilirubin, liver function testing or pancreas testing. Your symptoms could be signs of an early viral infection. Zofran has been provided to you to take as needed if any nausea or vomiting develops. Otherwise monitor symptoms closely, make sure you are drinking water. Return to the emergency department if you have severe worsening of symptoms fever or not tolerating anything by mouth. HPI General Date/Time Provider Initiated Documentation: 04/08/25 19:36 . Limitations to Documentation: no limitations . Information obtained by: patient . HPI Narrative: 29-year-old female with past medical history of choledocholithiasis and ascending cholangitis presents for evaluation of epigastric abdominal pain. She reports that she has had some very mild epigastric abdominal pain that started this morning. It is persistent throughout the day and has had no exacerbating or relieving components. Some mild nausea but no vomiting. No fever. She does report a little bit of diarrhea. She reports that she had a cholecystectomy in October but then was found to have choledocholithiasis with ascending cholangitis and got very sick. So she says that she is a little bit paranoid about epigastric pain. Related Data Home Medications ?Medication ?Instructions ?Recorded ?Confirmed medroxyprogesterone 150 mg/mL 150 mg IM [id number] 12/01/22 04/08/25 intramuscular syringe pantoprazole 40 mg tablet,delayed 40 mg PO DAILY 12/01/22 04/08/25 release Allergies Allergy/AdvReac Type Severity Reaction Status Date / Time No Known Allergies Allergy Verified 04/08/25 19:44 General Stated Complaint: Abd Prob JUAN CARLOS: 3 Exam Narrative Exam Narrative: Review of Systems: All systems reviewed & are unremarkable except as noted in HPI and below Well-developed, no acute distress NCAT PERRL, normal conjunctiva RRR Unlabored respiratory effort Nondistended abdomen soft nontender no guarding or rebound Course Vital Signs Vital signs: Vital Signs Temperature 36.7 C 04/08/25 19:38 Pulse 110 H 04/08/25 19:38 Respiratory Rate 20 04/08/25 19:38 Blood Pressure 148/80 H 04/08/25 19:38 Pulse Oximetry 98 04/08/25 19:38 Temperature 36.7 C 04/08/25 19:38 Temperature Source Oral 04/08/25 19:38 Pulse 94 H 04/08/25 21:40 Pulse 97 H 04/08/25 20:20 Respiratory Rate 18 04/08/25 21:40 Blood Pressure 119/52 L 04/08/25 21:40 Blood Pressure Mean 97 04/08/25 20:15 Blood Pressure Position Sitting 04/08/25 19:38 Pulse Oximetry 99 04/08/25 21:40 Oxygen Delivery Method Room Air 04/08/25 19:38 Oxygen Flow Rate 0 04/08/25 19:38 Pain Level 3 04/08/25 19:54 Lab/Test Results Lab/Test Results: Laboratory Tests Range/Units 04/08/25 20:22 WBC (4.4-10.8) 10^3/uL 9.74 RBC (3.93-5.22) 10^6/uL 4.79 Hgb (11.2-15.7) g/dL 14.1 Hct (36.0-46.0) % 42.6 MCV (80-95) fL 89 MCH (27.0-33.0) pg 29.4 MCHC (32.0-36.0) % 33.1 RDW (11.7-14.6) % 11.9 Plt Count (130-400) 10^3/uL 304 MPV (8.0-11.0) fL 8.8 Immature Gran % % 0.3 Neutrophils % % 60.2 Lymphocytes % % 30.3 Monocytes % % 6.9 Eosinophils % % 1.7 Basophils % % 0.6 Nucleated RBC % (0.0-0.3) % 0.0 Absolute Neutrophils (1.2-6.7) 10^3/uL 5.86 Absolute Lymphocytes (1.2-3.4) 10^3/uL 2.95 Absolute Monocytes (0.1-0.8) 10^3/uL 0.67 Absolute Eosinophils (0.0-0.7) 10^3/uL 0.17 Absolute Basophils (0.0-0.2) 10^3/uL 0.06 Sodium (136-145) mmol/L 142 Potassium (3.5-5.1) mmol/L 3.5 Chloride (98-107) mmol/L 106 Carbon Dioxide (21.0-32.0) mmol/L 26.5 Anion Gap (3-11) mmol/L 9.5 BUN (7-18) mg/dL 7 Creatinine (0.55-1.02) mg/dL 0.9 Est GFR (CKD-EPI 2020) (mL/min/1.73m2) 87.65 Glucose (74-106) mg/dL 104 Calcium (8.5-10.1) mg/dL 9.0 Total Bilirubin (0.2-1.0) mg/dL 0.2 AST (15-37) U/L 21 ALT (14-59) U/L 28 Alkaline Phosphatase (46-116) U/L 79 Total Protein (6.4-8.2) g/dL 8.2 Albumin (3.4-5.0) g/dL 3.6 Lipase (<78) U/L 57 POC- Test(urine) Negative Medical Decision Making Emergent evaluation of epigastric pain initial differential includes pancreatitis, gastritis, viral GI illness. Patient is well-appearing and has a benign abdominal exam. She is hemodynamically stable and afebrile. I will low suspicion for an acute intra-abdominal process or recurrent choledocholithiasis. Lab work was obtained this is all within normal limits. Given these findings, I do not think that the patient needs CT imaging in the setting of her benign abdominal exam. Recommend [id number] supportive care like Tums or Pepcid in addition she was provided Zofran just in case that this is a viral illness that might develop vomiting. Return precautions advised. Recommend follow-up with peds Quality:SDOH Health Related Social Needs: Health related social needs education (Z55.6) PFSH All Active Problems (Updated 04/08/25 @ 21:14 by Moustapha Hagan MD) Epigastric abdominal pain (Acute) Nausea (Acute) Sepsis (Acute) Choledocholithiasis (Acute) Ascending cholangitis (Acute) Elevated liver function tests (Acute) Leukocytosis (Acute) Sinus tachycardia (Acute) Upper abdominal pain (Acute) Abnormal auditory perception of both ears (Acute) Medical History Carpal tunnel syndrome Chronic headaches GERD (gastroesophageal reflux disease) Chronic nausea Obesity Surgical History Hx of cholecystectomy (~10/2024) Hx of wisdom tooth extraction S/P ERCP Social History Smoking/Tobacco Use Status: Former Tobacco Use Quit Date: 10/29/13 Smoking risk assessment performed?: Yes Alcohol Intake: never Drug use: Never Substance use type: does not use Housing: house Do you feel safe at home: Yes Do you feel safe in your relationship?: Yes
== END 2025-04-08 21:41 | disposition home or self-care (01) ==
PROVIDERS: Emergency Provider Emergency Medicine; PCP Family Medicine
DX: R10.13 Epigastric pain (principal); Z90.49 Acquired absence of other specified parts of digestive tract; Z87.891 Personal history of nicotine dependence
CPT/HCPCS: 36415; 80053; 81025; 83690; 96365; 96375; 99284; 85025; J1885; J2405

== ENCOUNTER 2025-09-02 08:12 | Outpatient (CLI) | payer BC, SELFPAY ==
[2025-09-02 08:29] LABS: Kit/Specimen SENT
== END 2025-09-02 08:13 | disposition home or self-care (01) ==
LOC: LBO 08:12
PROVIDERS: PCP Family Medicine
DX: Z01.812 Encounter for preprocedural laboratory examination (principal)
CPT/HCPCS: 36415